=== PATIENT | female | born 1980 | race Caucasian/White ===

== ENCOUNTER 2016-06-08 14:47 | Emergency (ER) | END 2016-06-08 18:05 | disposition left against medical advice (07) | LOC: UCCORT 14:47 | DX: R35.0 Frequency of micturition (principal); Z53.21 Procedure and treatment not carried out due to patient leaving prior to being seen by health care provider ==

== ENCOUNTER 2016-06-13 10:22 | Emergency (ER) | payer OTHER ==
[2016-06-13 11:31] VITALS: BP 132/58
--- NOTE | 2016-06-13 12:16 | UC ---
Complaint Female HPI - HPI Summary HPI Summary: 35 year old female presents complaining of vaginal itchiness, thick white discharge, and vaginal dryness x 2 weeks. Patient denies STI concern or burning on urination, patient states she is not currently sexually active. Pt states, "this feels just like when I've had vaginal yeast infections in the past." - History Of Current Complaint Chief Complaint: UCGU Stated Complaint: URINARY COMPLAINT Time Seen by Provider: 06/13/16 11:35 Hx Obtained From: Patient Hx Last Menstrual Period: 9.5 yrs ?: No Onset/Duration: Gradual Onset Timing: Constant Aggravating Factor(s): Nothing Alleviating Factor(s): Nothing Associated Signs And Symptoms: Positive: Vaginal Discharge. Negative: Fever, Back Pain, Nausea, Vomiting(# Of Episodes =), Genital Swelling Related Hx: - G1, Prior STD Hx - "abnormal pap smears" - Risk Factors Ectopic Risk Factor: IUD Use Ovarian Torsion Risk Factor: Reproductive Age - Allergies/Home Medications Allergies/Adverse Reactions: Allergies Allergy/AdvReac Type Severity Reaction Status Date / Time Methylprednisolone Allergy Bleeding Verified 06/13/16 11:32 [From Depo-Medrol] Penicillins Allergy Swelling Verified 06/13/16 11:32 Of Face,Lips,& Throat bee sting Allergy Difficulty Uncoded 06/13/16 11:32 Breathing Home Medications: Home Medications Duloxetine HCl 60 mg PO DAILY 06/13/16 [History Confirmed 06/13/16] Gabapentin CAP(*) [Neurontin 300 CAP(*)] 300 mg PO BID 06/13/16 [History Confirmed 06/13/16] Ibuprofen TAB* [Motrin TAB* 800 MG] 800 mg PO TID 06/13/16 [History Confirmed ] Zolpidem TAB* [Ambien TAB*] 10 mg PO BEDTIME 06/13/16 [History Confirmed ] buPROPion TAB* [Wellbutrin TAB*] 300 mg PO DAILY 06/13/16 [History Confirmed ] traZODone TAB* [Desyrel TAB*] 1 - 2 tab PO BEDTIME 06/13/16 [History Confirmed 06/13/16] PMH/Surg Hx/FS Hx/Imm Hx Previously Healthy: Yes Endocrine History Of: Denies: Diabetes, Thyroid Disease, Hyperthyroidism, Hypothyroidism, Dyslipidemia Cardiovascular History Of: Denies: Cardiac Disorders, Hypertension, Bleeding Disorders Respiratory History Of: Reports: Asthma Denies: COPD GI/ History Of: Denies: Gastroesophageal Reflux, Ulcer, Kidney Stones Neurological History Of: Denies: TIA Psychological History Of: Denies: Anxiety, Depression - Surgical History Surgical History: Yes Surgery Procedure, Year, and Place: c5 c6 fusion withg screws, left shoulder x 2 with anchors, partial labia; right knee, abd laparoscopy; bladder stretch, endometriosis and Mirena tx - Family History Known Family History: Positive: Hypertension - Mother, Other - Hypothyroidism- Mother Breast/Ovarian CA- Mother, "middle aged" - Social History Occupation: Employed Full-time Lives: With Family Alcohol Use: None Substance Use Type: None Smoking Status (MU): Former Smoker Review of Systems Constitutional: Negative Skin: Negative Eyes: Negative ENT: Negative Respiratory: Negative Cardiovascular: Negative Gastrointestinal: Diarrhea - x 3-6 months, following up with PCP to rule out colitis Genitourinary: Other - Vaginal itching, increased thick white discharge with vaginal dryness Motor: Negative Neurovascular: Negative Musculoskeletal: Negative Neurological: Negative Psychological: Anxious, Depressed, Other - PTSD All Other Systems Reviewed And Are Negative: Yes Physical Exam Triage Information Reviewed: Yes Appearance: Well-Appearing Vital Signs: Initial Vital Signs Temp 98.5 F 06/13/16 11:21 Pulse 71 06/13/16 11:21 Resp 20 06/13/16 11:21 BP 132/58 06/13/16 11:21 Vital Signs Reviewed: Yes Eye Exam: Normal Eyes: Positive: Conjunctiva Clear ENT Exam: Normal ENT: Positive: Normal ENT inspection, Hearing grossly normal, Pharynx normal, TMs normal Dental Exam: Normal Neck exam: Normal Neck: Positive: Supple, Nontender, No Lymphadenopathy Respiratory: Positive: Chest non-tender, Lungs clear, Normal breath sounds, No respiratory distress Cardiovascular: Positive: RRR, No Murmur, Pulses Normal Abdomen Description: Positive: Soft. Negative: CVA Tenderness (R), CVA Tenderness (L), Distended, Guarding Musculoskeletal: Positive: Strength Intact, ROM Intact, No Edema Neurological Exam: Normal Neurological: Positive: Alert, Muscle Tone Normal, Fatigued Psychological Exam: Normal Skin Exam: Normal Complaint Female Dx - Course Course Of Treatment: Patient refused pelvic exam, discussed with patient benefits of having a pelvic exam and the need for further evaluation if symptoms persist after treatment. - Differential Dx/Diagnosis Provider Diagnoses: vulvovaginal candidiasis Discharge - Discharge Plan Condition: Stable Disposition: HOME Prescriptions: Fluconazole 150 MG (NF) [Diflucan 150 mg (NF)] 150 mg PO ONCE #1 tab Terconazole Vaginal [Terazol 7] 1 applic VAGINAL BEDTIME #1 kit Patient Education Materials: Vulvovaginal Candidiasis (ED) Referrals: Kole ROSE,Jazmine Arzate [Medical Doctor] - Additional Instructions: As discussed, follow-up with OBGYN and PCP if symptoms persist, follow up with PCP regarding frequency of yeast infections.
== END 2016-06-13 12:25 | disposition home or self-care (01) ==
LOC: UCCORT 10:22
DX: B37.3 Candidiasis of vulva and vagina (principal); Z87.891 Personal history of nicotine dependence; Z88.0 Allergy status to penicillin; Z88.8 Allergy status to other drugs, medicaments and biological substances
CPT/HCPCS: 81025; 87077; 87086; 87186; 99212; G0463

== ENCOUNTER 2016-09-26 14:59 | Emergency (ER) | payer BC, OTHER ==
[2016-09-26 15:53] VITALS: BP 137/73
[2016-09-26] MEDS ORDERED: Ketorolac INJ* 60 MG/2 ML VIAL IM ONE (16:26)
--- NOTE | 2016-09-26 16:31 | UC ---
Ear Complaint HPI - HPI Summary HPI Summary: 36 female with presents with left ear pain that began about 1 week ago and has worsened over the past couple of days. Patient states the pain has become excruciating. Denies any discharge or difficulty hearing from her left ear. Denies known fever/chills. Admits to having a piercing done for migraines 1 month ago that is somewhat red and swollen on the outside of her ear, but the pain is coming from the inside. Patient has had ear infections in the past. She tried taking 800mg of ibuprofen around 8am this morning without relief. Denies cough, nasal congestion, difficulty breathing and chest pain. No other complaints of symptoms. Denies PMHx. - History of Current Complaint Chief Complaint: UCEar Stated Complaint: EAR PAIN Time Seen by Provider: 09/26/16 16:10 Hx Obtained From: Patient Hx Last Menstrual Period: Has mirena ?: No Onset/Duration: Sudden Onset, Lasting Weeks - 1, Worse Since Severity Initially: Moderate Severity Currently: Severe Pain Intensity: 7 Pain Scale Used: 0-10 Numeric Aggravating Factors: Nothing Alleviating Factors: Nothing Associated Signs/Symptoms: Positive: Swelling @ - daith ear peircing, externally however has been that way for past month. Negative: Discharge, Foreign Body Sensation, Trauma to Ear - Allergies/Home Medications Allergies/Adverse Reactions: Allergies Allergy/AdvReac Type Severity Reaction Status Date / Time Methylprednisolone Allergy Bleeding Verified 09/26/16 15:53 [From Depo-Medrol] Penicillins Allergy Swelling Verified 09/26/16 15:53 Of Face,Lips,& Throat bee sting Allergy Difficulty Uncoded 09/26/16 15:53 Breathing PMH/Surg Hx/FS Hx/Imm Hx - Additional Past Medical History Additional PMH: Denies PMHx. No diabetes, htn or asthma Previously Healthy: Yes - Surgical History Surgical History: Yes Surgery Procedure, Year, and Place: c5 c6 fusion withg screws, left shoulder x 2 with anchors, partial labia; right knee, abd laparoscopy; bladder stretch, endometriosis and Mirena tx - Family History Known Family History: Positive: Hypertension - Mother, Other - Hypothyroidism- Mother Breast/Ovarian CA- Mother, "middle aged" - Social History Alcohol Use: None Substance Use Type: None Smoking Status (MU): Light Every Day Tobacco Smoker Amount Used/How Often: 1/2 ppd Length of Time of Smoking/Using Tobacco: age 16 Have You Smoked in the Last Year: Yes - Immunization History Most Recent Influenza Vaccination: never Most Recent Tetanus Shot: 2016 Vaccination Up to Date: Yes Review of Systems Constitutional: Negative ENT: Ear Ache Respiratory: Negative Cardiovascular: Negative Gastrointestinal: Negative Musculoskeletal: Negative Neurological: Negative All Other Systems Reviewed And Are Negative: Yes Physical Exam Triage Information Reviewed: Yes Appearance: Well-Appearing, No Pain Distress, Well-Nourished Vital Signs: Initial Vital Signs Temp 99.0 F 09/26/16 15:39 Pulse 84 09/26/16 15:39 Resp 16 09/26/16 15:39 BP 137/73 09/26/16 15:39 Pulse Ox 98 09/26/16 15:39 low grade fever noted with ibuprofen in system. slightly elevated BP noted, recommended follow up with PCP within 2 weeks. Vital Signs Reviewed: Yes Eyes: Positive: Conjunctiva Clear ENT: Positive: Hearing grossly normal, Pharynx normal, TMs normal - right ear, TM bulging, TM dull, TM red - left ear. Negative: Pharyngeal erythema, Nasal congestion, Nasal drainage, Tonsillar swelling, Tonsillar exudate Dental: Negative: Cervical Lymphadenopathy Neck: Positive: Supple, Nontender, No Lymphadenopathy Respiratory: Positive: Chest non-tender, Lungs clear, Normal breath sounds, No respiratory distress, No accessory muscle use Cardiovascular: Positive: RRR, No Murmur, Pulses Normal Abdomen Description: Positive: Nontender Bowel Sounds: Positive: Present Musculoskeletal: Positive: Strength Intact, ROM Intact Neurological: Positive: Alert Skin Exam: Normal Ear Complaint Course/Dx - Course Course Of Treatment: will be treated for OM of left ear. instructed to clean ear peircing with soap and water, along with triple antibiotic. do not use q- tips inside of ear canal. do not submerge water. naproxen for pain and fever starting tomorrow due to given toradol for pain and inflammation while in office. Follow up with PCP adn to re-check BP. Aware of worsening signs and symptoms to watch out for. - Differential Dx/Diagnosis Differential Diagnosis/HQI/PQRI: Cellulitis, Cerumen Impaction, Otitis Externa, Otitis Media, Perforated TM, Pharyngitis, URI, Other Provider Diagnoses: otitis media, left Discharge - Discharge Plan Condition: Stable Disposition: HOME Prescriptions: Cefdinir [Cefdinir 300 MG CAP] 300 mg PO BID #20 cap Patient Education Materials: Otitis Media (ED) Referrals: Kole ROSE,Jazmine Arzate [Primary Care Provider] - Additional Instructions: Take prescribed antibiotic as directed, until entire dose is finished even if symptoms persist. If you have an allergic reaction such as difficulty breathing, throat swelling or hives, fever/chills please go to ER and stop taking medications. Take Aleve for pain starting tomorrow. Drink plenty of fluids and get plenty of rest. Do not use qtips and do not submerge head/ears under water. Apply triple antibiotic ointment and soap/water to ear piercing. Follow up with primary care doctor.
== END 2016-09-26 17:08 | disposition home or self-care (01) ==
LOC: UCCORT 14:59
DX: H66.92 Otitis media, unspecified, left ear (principal); Z72.0 Tobacco use
CPT/HCPCS: 96372; 99212; G0463; J1885

== ENCOUNTER 2016-12-07 16:09 | Emergency (ER) | payer BC ==
[2016-12-07 16:25] VITALS: BP 115/70
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
[2016-12-07] MEDS ORDERED: Ketorolac INJ* 60 MG/2 ML VIAL IM ONE (16:43)
== END 2016-12-07 17:19 | disposition home or self-care (01) ==
LOC: UCCORT 16:09
DX: M54.5 Low back pain (principal); M54.16 Radiculopathy, lumbar region; J45.909 Unspecified asthma, uncomplicated; F41.9 Anxiety disorder, unspecified; Z88.0 Allergy status to penicillin; Z88.5 Allergy status to narcotic agent; Z91.030 Bee allergy status; F17.210 Nicotine dependence, cigarettes, uncomplicated
CPT/HCPCS: 96372; 99212; G0463; J1885

== ENCOUNTER 2017-05-14 08:59 | Emergency (ER) | payer BC, OTHER ==
[2017-05-14 09:22] VITALS: BP 136/54
--- NOTE | 2017-05-14 09:25 | ED ---
Neck Pain - HPI Summary HPI Summary: 36 yr old with prior plate in neck and chronic numbness in the finger tips presents here with pain in neck after jarring her neck this morning. She states she slipped down 4 steps on her feet and caught herself with her arms at the bottom. She did not fall and hit buttock, pelvis, back, head or neck. She had a jarring motion. She states she has chronic numbness in finger tips; she states she sees [facility] Doctor Goldstein for her neck and in the near future is to get an MRI. She has no other complaints or injuries. - History of Current Complaint Stated Complaint: S/P FALL NECK INJURY Time Seen by Provider: 05/14/17 09:03 Hx Last Menstrual Period: IUD - Allergies/Home Medications Allergies/Adverse Reactions: Allergies Allergy/AdvReac Type Severity Reaction Status Date / Time Methylprednisolone Allergy Bleeding Verified 05/14/17 09:22 [From Depo-Medrol] Penicillins Allergy Swelling Verified 05/14/17 09:22 Of Face,Lips,& Throat bee sting Allergy Difficulty Uncoded 05/14/17 09:22 Breathing Home Medications: Home Medications Meloxicam [Mobic] 15 mg PO 05/14/17 [History] Mirabegron (NF) [Myrbetriq (NF)] 50 mg PO DAILY 05/14/17 [History Confirmed ] Prazosin CAP* [Minipress CAP*] 1 mg PO DAILY 05/14/17 [History Confirmed ] Tizanidine HCl 4 mg PO 05/14/17 [History] PMH/Surg Hx/FS Hx/Imm Hx Endocrine/Hematology History: Denies: Hx Diabetes, Hx Thyroid Disease Cardiovascular History: Denies: Hx Hypertension Respiratory History: Reports: Hx Asthma Denies: Hx Chronic Obstructive Pulmonary Disease (COPD) GI History: Denies: Hx Ulcer History: Denies: Hx Kidney Stones Neurological History: Denies: Hx Transient Ischemic Attacks (TIA) Psychiatric History: Denies: Hx Anxiety, Hx Depression - Surgical History Surgery Procedure, Year, and Place: c5 c6 fusion withg screws, left shoulder x 2 with anchors, partial labia; right knee, abd laparoscopy; bladder stretch, endometriosis and Mirena tx Infectious Disease History: Denies: Traveled Outside the [place] in Last 30 Days - Family History Known Family History: Positive: Hypertension - Mother, Other - Hypothyroidism- Mother Breast/Ovarian CA- Mother, "middle aged" Negative: Cardiac Disease, Diabetes - Social History Alcohol Use: None Substance Use Type: Reports: None Smoking Status (MU): Light Every Day Tobacco Smoker Amount Used/How Often: 1/2 ppd Length of Time of Smoking/Using Tobacco: age 16 Have You Smoked in the Last Year: Yes Review of Systems Positive: Other - neck pain Positive: Weakness - chronic in the left arm due to prior shoulder surgeries. , Numbness - chronic in her finger tips All Other Systems Reviewed And Are Negative: Yes Physical Exam Triage Information Reviewed: Yes Vital Signs Reviewed: Yes Appearance: Positive: Well-Appearing, No Pain Distress Skin: Positive: Warm, Skin Color Reflects Adequate Perfusion Head/Face: Positive: Normal Head/Face Inspection Eyes: Positive: EOMI ENT: Positive: Normal ENT inspection Neck: Positive: Tenderness @ - mild midline upper neck tenderness Respiratory/Lung Sounds: Positive: Clear to Auscultation, Breath Sounds Present Cardiovascular: Positive: RRR. Negative: Murmur Neurological: Positive: Alert, Oriented to Person Place, Time, CN Intact II- III. Negative: Sensory/Motor Intact - chronic numbness in the 2,3,4 finger tips bilateral, and also weakness left shoulder from prior surgeries. Psychiatric: Positive: Normal Diagnostics - Laboratory Lab Statement: Any lab studies that have been ordered have been reviewed, and results considered in the medical decision making process. - Radiology cervical spine Xray Interpretation: No Acute Changes Radiology Interpretation Completed By: Radiologist Neck Course/Dx - Course Course Of Treatment: 36 yr old with cervical strain. Plain films negative. She will follow up with Dr Goldstein. - Diagnoses Provider Diagnoses: Cervical strain Discharge - Discharge Plan Condition: Good Disposition: HOME Patient Education Materials: Cervical Strain (ED) Referrals: Adam Goldstein MD [Primary Care Provider] - 1 Day Additional Instructions: Call Dr Goldstein as soon as possible to be seen. If you experience any new numbness, weakness or increased pain, go to the [facility] ER where your doctor is on staff.
--- NOTE | 2017-05-14 09:46 | RAD ---
HISTORY: Neck pain COMPARISONS: None VIEWS: 5, Frontal, lateral, open-mouth odontoid, and bilateral oblique views of the cervical spine. FINDINGS: The cervical spine is visualized from the skull base through T1. ALIGNMENT: There is straightening of the normal cervical lordosis. VERTEBRAL BODIES: The odontoid process is intact. The atlantoaxial intervals are symmetric. The patient is status post anterior cervical fusion with a fusion plate and screws at C5 and C6. There is no appreciable hardware failure or osteolysis. JOINTS: There is no subluxation or dislocation. The facet joints are unremarkable. There is no osseous neural foraminal narrowing on the oblique views. INTERVERTEBRAL DISCS: The patient is status post fusion across C5-C6. SOFT TISSUE: The prevertebral soft tissues are normal. OTHER: The skull base is normal. The lung apices are clear. IMPRESSION: 1. STATUS POST ANTERIOR CERVICAL FUSION. 2. STRAIGHTENING OF THE CERVICAL LORDOSIS.
== END 2017-05-14 10:03 | disposition home or self-care (01) ==
LOC: UCCORT 08:59
DX: S16.1XXA Strain of muscle, fascia and tendon at neck level, initial encounter (principal); W18.40XA Slipping, tripping and stumbling without falling, unspecified, initial encounter; Y93.9 Activity, unspecified; Y92.9 Unspecified place or not applicable; J45.909 Unspecified asthma, uncomplicated; Z88.0 Allergy status to penicillin; Z88.8 Allergy status to other drugs, medicaments and biological substances; F17.210 Nicotine dependence, cigarettes, uncomplicated
CPT/HCPCS: 72050; 99211; G0463

== ENCOUNTER 2018-01-22 15:58 | Emergency (ER) | payer OTHER ==
--- OUTSIDE RECORDS SUMMARY | 2018-01-22 16:34 | XMS REPORT | Continuity of Care Document ---
:1980 External Reference #:[id number] Author Name Sydney Rahman M.D. Address [address] [place] [address] [address] [place] [address] Care Team Providers Name Role Phone Jazmine Sharif M.D. Care Team Information Temperature Logging Operator Unavailable Jazmine Sharif M.D. Primary Care Physician Unavailable Payers Type Date Identification Numbers Payment Provider Subscriber Policy Number: [id number] [facility] Claims Ana Major PayID: [id number] [address] [place] [address] Policy Number: [id number] Medicaid Ana Major PayID: [id number] [address] [place] [address] Advance Directives Description No Information Available Problems Description No Information Family History Date Family Member(s) Problem(s) Comments General Ovarian Cancer M - 36 ? General Colon Cancer PGM General See Scanned Chart Social History Type Date Description Comments Sex Unknown Marital Status Engaged Tobacco Use Start: Unknown Light tobacco smoker (10 or fewer cigarettes/day) Allergies, Adverse Reactions, Alerts Date Description Reaction Status Severity Comments 09/26/2011 Penicillin Contact dermatitis Active 11/09/2014 Depo-Medrol Active hives 07/12/2010 NKDA Inactive Medications Medication Date Status Form Strength Qnty SIG Indications Ordering Provider Mirena 12/20 Active IUD 20mcg/24H Sydney /Kareem Rahman M.D. Albuterol Sulfate Active Nebulizer (2.5mg/3M Kole, /0000 L) 0.083% Cheyenne Lucero Cyclobenzaprine Active Tablets 5mg Kole, HCL /0000 Cheyenne Lucero Topiramate Active Tablets 25mg Unknown /0000 Trospium Chloride 00 Active Tablets 20mg Unknown /0000 Morphine Sulfate Active Tablets ER 15mg Unknown ER /0000 Ventolin HFA Active Aerosol 108(90Bas Unknown /0000 e) mcg/Act Sumatriptan Active Tablets 50mg Unknown Succinate Prazosin HCL Active Capsules 2mg Unknown / Sertraline HCL Active Tablets 50mg Unknown /0000 Trazodone HCL Active Tablets 100mg Unknown / Montelukast Active Tablets 10mg Unknown Sodium /0000 Diflucan 12/01 Hx Tablets 150mg 3tabs 1 by mouth every day x Lacey, - 3 days M.D. 11/29 Terazol 7 11/24 Hx Cream 0.4% 1cour [address] of Lacey, - vagina M.D. 01/20 every bedtime x7 nights Flagyl 10/03 Hx Tablets 500mg 14tab 1 po bid x s 7 days Lacey, - M.D. 10/02 Diflucan 10/03 Hx Tablets 150mg 2tabs 1 po day 2 and 5 of Lacey, - antibiotic M.D. 10/02 Lotrisone 03/09 Hx Cream 1-0.05% 1tube apply to affected Lacey, - area t.i.d. M.D. 09/25 Angeliq 12/20 Hx Tablets 0.5-1mg 1Mont 1 po qd Mcmanus Lacey, - M.D. 09/25 Lupron Depot 12/20 Hx Kit 3.75mg 1unit to be admin s im q 4 Lacey, - weeks M.D. 09/25 Flagyl 03/24 Hx Tablets 500mg 14tab 1 po bid x s 7 days Margabrielaale, - M.D. 09/25 Diflucan 03/24 Hx Tablets 150mg 2tabs 1 po now, August repeat Lacey, - in 48 hrs M.D. 09/25 Macrobid 11/16 Hx Capsules 100mg 6caps 1 po bid x 3 Lacey, - M.D. 09/25 Xanax / Hx Tablets 0.25mg 60tab 1 po tid Unknown /0000 s prn anxiety - 10/02 Citalopram 00 Hx Tablets 10mg 30tab 1 po qd Unknown Hydrobromide /0000 s - 10/[address] 500mg Unknown /0000 - 10/02 Lexapro / Hx Tablets 10mg 30tab 1 po qd Unknown /0000 s - 11/09 Mirtazapine Hx Tablets 7.5mg Unknown /0000 - 11/09 Benzonatate Hx Capsules 100mg Unknown /0000 - 01/20 Hydrocodone Hx Solution 7.5-325mg Unknown Bitartrate/Acetam /ML inophen - 01/20 Azithromycin Hx Tablets 500mg Kole, /0000 Jazmine - M.DLubna 11/09 Elmiron Hx Capsules 100mg Jan, /0000 CHELSEA Villanueva - 11/23 Escitalopram Hx Tablets 20mg Kole, Oxalate /0000 Jazmine - M.DLubna 11/23 Ibuprofen Hx Tablets 800mg Kole, /0000 Jazmine - M.DLubna 01/08 Nicotine Hx Patches 14mg/24HR Kole, /0000 24HR Jazmine - M.Mendoza 11/09 Nicotine Hx Patches 21mg/24HR Kole, /0000 24HR Jazmine - M.DLubna 01/20 Nicotine Hx Patches 7mg/24HR Kole, /0000 24HR Jazmine - M.Mendoza 11/09 Prednisone Hx Tablets 10mg Kole, /0000 Jazmine - M.DLubna 11/09 Proair HFA Hx Aerosol 108(90Bas Kole, /0000 e) Jazmine - mcg/Act M.DLubna 01/01 Divalproex Sodium Hx Tablets ER 250mg Kole, ER /0000 24HR Ottoniel Lucero M.D. 01/20 Cefuroxime Axetil Hx Tablets 500mg Kole, /0000 Jazmine - M.DLubna 11/09 Oxycodone HCL 00/00 Hx Tablets 5mg Unknown /0000 - 11/23 Meloxicam 00/00 Hx Tablets 15mg Unknown /0000 - 11/09 Amitriptyline HCL 00/00 Hx Tablets 10mg Conchis Eckertel /0000 Cheyenne Cruz - 11/23 Nitrofurantoin 00/00 Hx Capsules 100mg Bigg Eckert Monohyd Macro /0000 SCheyenne Calvo - 11/09 Oxybutynin 00/00 Hx Tablets ER 10mg Kole, Chloride ER /0000 24HR Jazmine - Ugo.Mendoza 11/09 Azithromycin /00 Hx Tablets 250mg Kole, /0000 Jazmine - M.DLubna 11/09 Levofloxacin / Hx Tablets 500mg Unknown /0000 - 01/20 Advair Diskus / Hx Aerosol 100-50mcg Unknown /0000 /Dose - 11/29 Prednisone 00/00 Hx Tablets 10mg Kole, /0000 Jazmine - M.DLubna 01/20 Azithromycin 00/00 Hx Tablets 500mg Kole, /0000 Jazmine - M.DLubna 01/20 Cefuroxime Axetil Hx Tablets 500mg Kole, /0000 Jazmine - M.DLubna 01/20 Meloxicam 00/00 Hx Tablets 15mg Unknown /0000 - 01/20 Nitrofurantoin 00/00 Hx Capsules 100mg Bigg Ekcerthyd Macro /0000 Cheyenne Cruz - 01/20 Oxybutynin 00/00 Hx Tablets ER 10mg Kole, Chloride ER /0000 24HR Jazmine - MSandra 01/20 Azithromycin /00 Hx Tablets 250mg Kole, /0000 Jazmine - M.DLubna 01/20 Bupropion HCL 00/00 Hx Tablets 100mg Take One Unknown /0000 Tablet By - Mouth Every 01/01 Fluoxetine HCL 00/00 Hx Capsules 20mg Take One Unknown /0000 Capsule By - Mouth Every 01/01 With 40MG For A Total Of 60MG Gabapentin Hx Capsules 300mg Take One Unknown /0000 Capsule By - Mouth Four 01/08 Times A Day /2018 as Needed Zolpidem Tartrate 00 Hx Tablets 10mg Take One Unknown /0000 Tablet By - Mouth AT 01/08 Maximum Daily Dose=1 Medications Administered in Office Medication Date Status Form Strength Qnty SIG Indications Ordering Provider Kingsley Administered Injection Sydney Injection [facility] 009 [place] [id number] Cheyenne Immunizations Description No Information Available Vital Signs Date Vital Result Comment 01/09/2018 3:34pm BP Systolic 124 mmHg BP Diastolic 84 mmHg Height 63 inches 5'3" Weight 186.00 lb BMI (Body Mass Index) 32.9 kg/m2 01/02/2017 3:52pm BP Systolic 118 mmHg BP Diastolic 80 mmHg Height 63 inches 5'3" Weight 183.00 lb BMI (Body Mass Index) 32.4 kg/m2 11/30/2016 4:04pm BP Systolic 122 mmHg BP Diastolic 82 mmHg Height 63 inches 5'3" Weight 182.00 lb BMI (Body Mass Index) 32.2 kg/m2 11/24/2015 4:10pm BP Systolic 122 mmHg BP Diastolic 84 mmHg Height 63 inches 5'3" Weight 184.38 lb BMI (Body Mass Index) 32.7 kg/m2 01/20/2015 2:43pm BP Systolic 122 mmHg BP Diastolic 84 mmHg Height 63 inches 5'3" Weight 178.38 lb BMI (Body Mass Index) 31.6 kg/m2 11/09/2014 9:17am BP Systolic 118 mmHg BP Diastolic 80 mmHg Height 63 inches 5'3" Weight 173.38 lb BMI (Body Mass Index) 30.7 kg/m2 11/10/2013 11:16am BP Systolic 118 mmHg BP Diastolic 68 mmHg Height 63 inches 5'3" Weight 180.00 lb BMI (Body Mass Index) 31.9 kg/m2 10/29/2013 9:22am BP Systolic 124 mmHg BP Diastolic 82 mmHg Height 63 inches 5'3" Weight 179.25 lb BMI (Body Mass Index) 31.7 kg/m2 10/02/2012 2:05pm BP Systolic 118 mmHg BP Diastolic 76 mmHg Height 63 inches 5'3" Weight 178.00 lb BMI (Body Mass Index) 31.5 kg/m2 09/26/2011 11:55am BP Systolic 122 mmHg BP Diastolic 80 mmHg Height 63 inches 5'3" Weight 173.00 lb BMI (Body Mass Index) 30.6 kg/m2 12/20/2009 11:16am Height 63 inches 5'3" Weight 195.00 lb BMI (Body Mass Index) 34.5 kg/m2 Results Test Date Facility Test Result H/L Range Note Laboratory test 01/09/2018 [facility] Thinprep W/High <pending> finding Risk HPV Laboratory test 01/02/2017 [facility] TP HighRisk HPV Normal 1 finding High-Risk HPV 01/02/2017 [facility] HPV Abnormal 2 TP HighRisk HPV SEE IMAGE Ua And Culture 01/02/2017 [facility] Urine Culture SPECIMEN DESCRI> [address] [place] [address] [phone] Urinalysis 01/02/2017 [facility] Color YELLOW [address] [place] [address], [place] [address] [phone] Appearance CLEAR Spec Grav Urine 1.020 (1.003-1.030) PH Urine 5.0 (5.0-7.5) Leuk Esterase NEGATIVE (Neg) Nitrite Urine NEGATIVE (Neg) Protein Urine NEGATIVE (Neg) Glucose Urine NEGATIVE (Neg) Ketone Urine NEGATIVE (Neg) Urobilinogen 0.2 mg/dL (0-1.0) Bilirubin Urine NEGATIVE (Neg) Blood/HGB Urine NEGATIVE (Neg) Ua And Culture 11/30/2016 [facility] Urine Culture <pending> Justino [address] [place] [address] [phone] Ua And Culture 11/24/2015 [facility] Urine Culture SPECIMEN DESCRI> [address] [place] [address] [phone] Urinalysis 11/24/2015 [facility] Color YELLOW [address] [place] [address], [place] [address] [phone] Appearance CLEAR Spec Grav Urine 1.020 (1.003-1.030) PH Urine 5.5 (5.0-7.5) Leuk Esterase NEGATIVE (Neg) Nitrite Urine NEGATIVE (Neg) Protein Urine NEGATIVE (Neg) Glucose Urine NEGATIVE (Neg) Ketone Urine NEGATIVE (Neg) Urobilinogen 0.2 mg/dL (0-1.0) Bilirubin Urine NEGATIVE (Neg) Blood/HGB Urine NEGATIVE (Neg) Laboratory test 11/24/2015 [facility] Vaginitis Direct SPECIMEN [address] [place] [address] Test DESCRI> [place] [address] [phone] Vag/Cerv Culture SPECIMEN DESCRIP <SEE NOTE> 6 Laboratory test 11/24/2015 [facility] (DO Not Use) Cytology Pap See Note 7 finding Laboratory test 01/20/2015 [facility] Vaginitis Direct SPECIMEN DESCRI> 8 [address] Test [place], [place] [address] [phone] Vag/Cerv Culture SPECIMEN DESCRI> 9 Urinalysis 01/20/2015 [facility] Color YELLOW [address] [facility] [place] [address] [phone] Appearance CLEAR Spec Grav Urine 1.019 (1.003-1.030) PH Urine 7.5 (5.0-7.5) Leuk Esterase NEGATIVE (Neg) Nitrite Urine NEGATIVE (Neg) Protein Urine NEGATIVE (Neg) Glucose Urine NEGATIVE (Neg) Ketone Urine NEGATIVE (Neg) Urobilinogen 0.2 mg/dL (0-1.0) Bilirubin Urine NEGATIVE (Neg) Blood/HGB Urine NEGATIVE (Neg) Ua And Culture 01/20/2015 [facility] Urine Culture SPECIMEN 10 [facility] DESCRI> [place] [address] [phone] Pap+GC/CT 11/09/2014 [facility] (DO Not Use) [facility] CT- GC- 11 Laboratory test 11/09/2014 [facility] Vaginitis Direct SPECIMEN 12 finding [address] [facility] Test [place]CRI> [place] [address] [phone] Vag/Cerv Culture SPECIMEN DESCRI> 13 Laboratory test 11/10/2013 [facility] Urine Culture SPECIMEN 14 finding [address] [place]CRI> [place] [address] [phone] Laboratory test 10/29/2013 [facility] (DO Not Use) Cytology Pap See Note 15 finding Ua And Culture 10/29/2013 [facility] Urine Culture SPECIMEN [address] [place]CR[place]> [place] [address] [phone] Urinalysis 10/29/2013 [facility] Color EVIN [address] [facility] [address] [phone] Appearance CLOUDY Spec Grav Urine 1.022 (1.003-1.030) PH Urine 5.5 (5.0-7.5) Leuk Esterase TRACE (Neg) Nitrite Urine NEGATIVE (Neg) Protein Urine NEGATIVE (Neg) Glucose Urine NEGATIVE (Neg) Ketone Urine 1+ (Neg) Urobilinogen 1.0 mg/dL (0-1.0) Bilirubin Urine 2+ (Neg) 17 Blood/HGB Urine 1+ (Neg) Urine Micro Only 10/29/2013 [facility] Urine WBC 0-2 [HPF] (0-5) [address] [place] [address] [phone] Urine RBC * 6-10 [HPF] (0-2) Epithelial Cells 1+ [HPF] Bacteria 1+ [HPF] Mucus 2+ [HPF] Laboratory test 10/02/2012 [facility] Pap LABORATORY [address] [place] [address] ALLIA <[place] [address] NOTE> [phone] CT/GC Amplified 10/02/2012 [facility] C. Trachomatis NEGATIVE (Neg) [address] [place] [address] [phone] N. Gonorrhoeae NEGATIVE (Neg) 20 Laboratory test 10/02/2012 [facility] Vag/Cerv SPECIMEN [address] [place] [address] Culture DESCRIP <[place] [address] NOTE> [phone] Ua And Culture 09/26/2011 [facility] Urine Culture SPECIMEN [address] [place] [address] DESCRIP <[place] [address] NOTE> [phone] Urinalysis 09/26/2011 [facility] Color EVIN [address] [place] [address] [phone] Appearance CLEAR Spec Grav Urine 1.028 (1.003-1.030) PH Urine 6.0 (5.0-7.5) Leuk Esterase NEGATIVE (Neg) Nitrite Urine NEGATIVE (Neg) Protein Urine NEGATIVE (Neg) Glucose Urine NEGATIVE (Neg) Ketone Urine NEGATIVE (Neg) Urobilinogen 1.0 mg/dL (0-1.0) Bilirubin Urine NEGATIVE (Neg) Blood/HGB Urine NEGATIVE (Neg) Laboratory test 09/26/2011 [facility] Pap LABORATORY [place] [address] [place] [address] <SEE NOTE> [place] [address] [phone] Vaginitis Direct Test SPECIMEN DESCRIP <SEE NOTE> 24 CT/GC Amplified 09/26/2011 [facility] C. Trachomatis NEGATIVE (Neg) [address] [place] [address] [phone] N. Gonorrhoeae NEGATIVE (Neg) 26 Laboratory test 09/26/2011 [facility] Vag/Cerv SPECIMEN [address] Culture DESCRIP <SEE [place] [address] NOTE> [phone] Laboratory test 07/21/2010 [facility] HCG,Quant Preg <1 MIU/ML 28 finding [address] [facility] [place] [place] [address] [phone] Progesterone @ 2.79 NG/ML 29 Type And Screen SPEC EXP DATE <SEE NOTE> 30 Laboratory test 07/21/2010 [facility] Pap LABORATORY [place] [address] <SEE NOTE> [place] [address] [phone] Laboratory test 03/09/2010 [facility] [address] Pathology <SEE NOTE> [place] [address] Specimen [phone] Vaginitis Direct Test SPECIMEN DESCRIP <SEE NOTE> 33 Misc Genital Culture SPECIMEN DESCRIP <SEE NOTE> 34 HSV PCR W/Typing 03/09/2010 [facility] HSV PCR Source CERVICAL [address] [place] [address] [place] 5805383 [phone] HSV PCR W/Typing POLYMERASE <SEE NOTE> 35 HSV Performing Lab [facility] <SEE NOTE> 36 Laboratory test 01/24/2010 [facility] [address] Pathology <SEE NOTE> [place] [address] Specimen [phone] Laboratory test 12/20/2009 [facility] Pap LABORATORY [place] [address] <SEE NOTE> [place] [address] [phone] Vaginitis Direct Test SPECIMEN DESCRIP <SEE NOTE> 39 CT/GC Amplified 12/20/2009 [facility] C. Trachomatis NEGATIVE (Neg) [address] [place] [address] [place] [address] [phone] N. Gonorrhoeae NEGATIVE (Neg) 41 Urinalysis 12/20/2009 [facility] Color YELLOW Harish [place] [address] [phone] Appearance CLEAR Spec Grav Urine 1.006 (1.003-1.030) PH Urine 7.0 (5.0-7.5) Leuk Esterase NEGATIVE (Neg) Nitrite Urine NEGATIVE (Neg) Protein Urine NEGATIVE (Neg) Glucose Urine NEGATIVE (Neg) Ketone Urine NEGATIVE (Neg) Urobilinogen 0.2 mg/dL (0-1.0) Bilirubin Urine NEGATIVE (Neg) Blood/HGB Urine NEGATIVE (Neg) Ua And Culture 12/20/2009 [facility] Urine Culture SPECIMEN 42 (Lacny) [address] DESCRIP <[place] [address] NOTE> [phone] Laboratory test 12/20/2009 [facility] Misc Genital SPECIMEN 43 finding [address] Culture DESCRIP <[place] [address] NOTE> [phone] Laboratory test 03/15/2009 [facility] Vaginitis SPECIMEN 44 finding [address] Direct Test DESCRIP <[place] [address] NOTE> [phone] Urine Microscopic 11/11/2008 [facility] Urine WBC 3-5 /HPF (0-5) [address] [place] [address] [phone] Urine RBC * 3-5 /HPF (0-2) Epithelial Cells 1+ /HPF Bacteria 1+ /HPF Urinalysis 11/11/2008 [facility] Color YELLOW 45 [address] [place] [address] [phone] Appearance CLEAR Spec Grav Urine 1.020 (1.003-1.030) PH Urine 5.5 (5.0-7.5) Leuk Esterase TRACE (Neg) Nitrite Urine NEGATIVE (Neg) Protein Urine NEGATIVE (Neg) Glucose Urine NEGATIVE (Neg) Ketone Urine NEGATIVE (Neg) Urobilinogen 0.2 mg/dL (0-1.0) Bilirubin Urine NEGATIVE (Neg) Blood/HGB Urine TRACE (Neg) Ua And Culture 11/11/2008 [facility] Urine Culture SPECIMEN 46 (Lacny) [address] DESCRIP <[place] [address] NOTE> [phone] Laboratory test 10/15/2008 [facility] HCG, Qual. NEGATIVE (Neg) finding [address] [facility] [place] [address] [phone] CBC Without Diff 10/15/2008 [facility] WBC 11.7 K/UL High (4.1- [address] 11.0) [place] [address] [phone] RBC 4.87 M/UL (4.00-5.40) HGB 15.4 GM/DL (12.0-16.0) HCT 45.2 % (36.0-47.0) MCV 92.9 FL (80.0-95.0) MCH 31.5 pg (27.0-32.0) MCHC 34.0 g/dL (32.0-36.0) RDW 13.3 % (10.5-14.5) PLT 379 K/UL (150-400) MPV 7.5 FL (7.1-10.7) Laboratory test 09/03/2008 [facility] Urine Culture SPECIMEN DESCRIP [address] [place] [address] <SEE NOTE> [place] [address] [phone] Laboratory test 09/03/2008 [facility] Pap LABORATORY [place] [address] [place] [address] ROAD <SEE NOTE> [place] [address] [phone] Urinalysis 09/03/2008 [facility] Color YELLOW [address] [place] [address] [phone] Appearance CLEAR Spec Grav Urine 1.019 (1.003-1.030) PH Urine 8.0 High (5.0-7.5) Leuk Esterase NEGATIVE (Neg) Nitrite Urine NEGATIVE (Neg) Protein Urine NEGATIVE (Neg) Glucose Urine NEGATIVE (Neg) Ketone Urine NEGATIVE (Neg) Urobilinogen 0.2 mg/dL (0-1.0) Bilirubin Urine NEGATIVE (Neg) Blood/HGB Urine NEGATIVE (Neg) 1 SPECIMEN PART A. Cervical, Endocervical, ThinPrep Pap (In Shop Service Technician) CYTOLOGY HX Date of Last Menstrual Period: N Other Information: Routine Exam Previous Normal Pap: 2016 FINAL DIAGNOSIS INTERPRETATION: Negative for Intraepithelial Lesion or Malignancy. SPECIMEN ADEQUACY:Satisfactory for evaluation. Endocervical/transformation zone component present. 2 HR-HPV: Positive Test performed by the FDA-approved [employer] (Gen-Probe) APTIMA HPV test, which detects HPV genotypes: 16, 18, 31, 33, 35, 39, 45, 51, 52, 56, 58, 59, 66, and 68. 3 SPECIMEN DESCRIPTION BLADDER URINE CULTURE RESULTS NO GROWTH REPORT STATUS FINAL 01/03/2017 4 SPECIMEN DESCRIPTION BLADDER URINE CULTURE RESULTS MIXED UROGENITAL BEATRICE; PLEASE SUBMIT A NEW SPEC IMEN IF CLINICALLY INDICATED. REPORT STATUS FINAL 11/26/2015 5 SPECIMEN DESCRIPTION VAGINAL SPECIMEN RESULT NEGATIVE FOR TRICHOMONAS VAGINALIS NEGATIVE FOR GARDNERELLA VAGINALIS POSITIVE FOR TEODORO SPECIES REPORT STATUS FINAL 11/24/2015 6 SPECIMEN DESCRIPTION VAGINAL SPECIMEN GROUP B STREP CULT. NEGATIVE: BETA HEMOLYTIC STREPTOCOCCI GROUP B B Y PCR CULTURE RESULTS NORMAL VAGINAL BEATRICE NO NEISSERIA GONORRHOEAE ISOLATED REPORT STATUS FINAL 11/26/2015 7 Interpretation: NEGATIVE FOR INTRAEPITHELIAL LESION OR MALIGNANCY. FUNGAL ORGANISMS MORPHOLOGICALLY CONSISTENT WITH TEODORO SP. Specimen Adequacy: SATISFACTORY FOR EVALUATION. Additional Findings: ENDOCERVICAL/TRANSFORMATION ZONE PRESENT. This liquid-based ThinPrep Pap Test was screened with the use of the ThinPrep Imaging System and was reported using Morganza System descriptive nomenclature. Cytology Laboratory [address] [place] [address], [address] [place] [address] CYTOLOGY REPORT Name: Ana Major : 1980 (Age: 35) Sex: F Location: [facility] Med. Rec. # [id number] Date Collected: 11/24/2015 Billing #: [id number] Date Received: 11/25/2015 Physician(s): SYDNEY RAHMAN MD Source of Specimen: ENDOCERVICAL/ECTOCERVICAL THIN PREP Clinical Information: Date of Last Menstrual Period: None Provided jordan Electronic Signature GALLO Orozco (ASCP) Reported: 11/30/2015 [facility] Dx Code(s): Z01.419 A; B37.3 8 SPECIMEN DESCRIPTION VAGINAL SPECIMEN RESULT NEGATIVE FOR TRICHOMONAS VAGINALIS NEGATIVE FOR GARDNERELLA VAGINALIS NEGATIVE FOR TEODORO SPECIES REPORT STATUS FINAL 01/20/2015 9 SPECIMEN DESCRIPTION VAGINAL SPECIMEN GROUP B STREP CULT. NEGATIVE: BETA HEMOLYTIC STREPTOCOCCI GROUP B B Y PCR CULTURE RESULTS NORMAL VAGINAL BEATRICE NO NEISSERIA GONORRHOEAE ISOLATED REPORT STATUS FINAL 01/22/2015 10 SPECIMEN DESCRIPTION BLADDER URINE CULTURE RESULTS NO GROWTH REPORT STATUS FINAL 01/21/2015 11 Interpretation: NEGATIVE FOR INTRAEPITHELIAL LESION OR MALIGNANCY. REACTIVE CELLULAR CHANGES ASSOCIATED WITH INFLAMMATION. FUNGAL ORGANISMS MORPHOLOGICALLY CONSISTENT WITH TEODORO SP. Specimen Adequacy: SATISFACTORY FOR EVALUATION. Additional Findings: ENDOCERVICAL/TRANSFORMATION ZONE PRESENT. Cytology Laboratory [address] [facility], [address] [place] [address] CYTOLOGY REPORT Name: Ana Major : 1980 (Age: 34) Sex: F Location: [facility] Med. Rec. # [id number] Date Collected: 11/09/2014 Billing #: [id number] Date Received: 11/09/2014 Requisition # [id number] Physician(s): SYDNEY RAHMAN MD Source of Specimen: ENDOCERVICAL/ECTOCERVICAL THIN PREP Clinical Information: Date of Last Menstrual Period: None Provided md Electronic Signature Alan Mckeon MD Reported: 11/13/2014 Also seen by: GALLO Otero (ASCP) [facility] Chlamydia trachomatis Date Ordered: 11/10/2014 Status: Signed Out Date Reported: 11/10/2014 Chlamydia trachomatis NEGATIVE Electronic Signature Marilynn [facility] [email or web address] [facility] Neisseria gonorrhoeae Date Ordered: 11/10/2014 Status: Signed Out Date Reported: 11/10/2014 Neisseria gonorrhoeae NEGATIVE Electronic Signature Marilynn [employer] [facility] ICD-9 Code(s) V72.31 A; 616.9 112.1 12 SPECIMEN DESCRIPTION VAGINAL SPECIMEN RESULT NEGATIVE FOR TRICHOMONAS VAGINALIS NEGATIVE FOR GARDNERELLA VAGINALIS POSITIVE FOR TEODORO SPECIES REPORT STATUS FINAL 11/09/2014 13 SPECIMEN DESCRIPTION VAGINAL SPECIMEN GROUP B STREP CULT. NEGATIVE: BETA HEMOLYTIC STREPTOCOCCI GROUP B B Y PCR CULTURE RESULTS NORMAL VAGINAL BEATRICE NO NEISSERIA GONORRHOEAE ISOLATED REPORT STATUS FINAL 11/11/2014 14 SPECIMEN DESCRIPTION BLADDER URINE CULTURE RESULTS NO GROWTH REPORT STATUS FINAL 11/11/2013 15 Cytology Laboratory [address] [facility], [address] [place] [address] CYTOLOGY REPORT Name: Ana Major : 1980 (Age: 33) Sex: F Location: [facility] Med. Rec. # [id number] Date Collected: 10/29/2013 Billing #: [id number] Date Received: 10/29/2013 Requisition # [id number] Physician(s): SYDNEY RAHMAN MD Source of Specimen: ENDOCERVICAL/ECTOCERVICAL THIN PREP Clinical Information: Date of Last Menstrual Period: None Provided Hormonal History: IUD Interpretation: NEGATIVE FOR INTRAEPITHELIAL LESION OR MALIGNANCY. Specimen Adequacy: SATISFACTORY FOR EVALUATION. Additional Findings: ENDOCERVICAL/TRANSFORMATION ZONE PRESENT. kfs Electronic Signature GALLO Patel (ASCP) Reported: 11/03/2013 [facility] [email or web address] [facility] ICD-9 Code(s) V72.31 16 SPECIMEN DESCRIPTION BLADDER URINE CULTURE RESULTS NO GROWTH REPORT STATUS FINAL 10/30/2013 17 CONFIRMATION TEST TEMPORARILY NOT AVAILABLE DUE TO A NATIONAL REAGENT BACKORDER. 18 [employer]. [address] [place] [address] GYNECOLOGIC CYTOLOGY REPORT Accession Number: [id number] Source of Specimen(s): A: [facility] Cervical / Endocervical Pap Smear - One Vial Clinical Diagnosis and History: Date of Last Menstrual Period: None Provided Other Clinical Conditions: Last Pap Smear: 09/26/11 IUD REFLEX TO DIGENE HPV ASSAY IF RESULTS OF THIS PAP ARE ASCUS Specimen Adequacy Satisfactory for evaluation Presence of endocervical/transformation zone component General Categorization Negative for intraepithelial lesion or malignancy Interpretation NEGATIVE FOR INTRAEPITHELIAL LESION OR MALIGNANCY Acute inflammatory cells Reported: 10/04/2012 Electronically Signed Out By Jazmine HOLDER(ASCP) [facility] 19 SOURCE - CERVICAL BY AMPLIFIED DNA PROBE PERFORMED AT [address] [place] [id number] SOURCE - CERVICAL BY AMPLIFIED DNA PROBE PERFORMED AT [address] [place] [id number] SPECIMEN DESCRIPTION VAGINAL SPECIMEN GROUP B STREP CULT. NEGATIVE FOR BETA HEMOLYTIC STREPTOCOCCI GROUP B BY PCR. CULTURE RESULTS NORMAL VAGINAL BEATRICE NO NEISSERIA GONORRHOEAE ISOLATED REPORT STATUS FINAL 10/05/2012 22 SPECIMEN DESCRIPTION BLADDER URINE CULTURE RESULTS <10,000 CFU/ML REPRESENTING URETHRAL BEATRICE REPORT STATUS FINAL 09/27/2011 23 [employer]. [address] [place] [address] GYNECOLOGIC CYTOLOGY REPORT Accession Number: [id number] Source of Specimen(s): A: SurePath Cervical / Endocervical Pap Smear - One Vial Clinical Diagnosis and History: Date of Last Menstrual Period: None Provided Other Clinical Conditions: Last Pap Smear: 07/08 REFLEX TO DIGENE HPV ASSAY IF RESULTS OF THIS PAP ARE ASCUS Specimen Adequacy Satisfactory for evaluation Presence of endocervical/transformation zone component General Categorization Negative for intraepithelial lesion or malignancy Interpretation NEGATIVE FOR INTRAEPITHELIAL LESION OR MALIGNANCY Acute inflammatory cells Shift in beatrice suggestive of bacterial vaginosis Reported: 09/28/2011 Electronically Signed Out By Jazmine HOLDER(ASCP) [facility] 24 SPECIMEN DESCRIPTION VAGINAL SPECIMEN RESULT POSITIVE FOR GARDNERELLA VAGINALIS NEGATIVE FOR TEODORO SPECIES NEGATIVE FOR TRICHOMONAS VAGINALIS REPORT STATUS FINAL 09/26/2011 25 SOURCE - CERVICAL BY AMPLIFIED DNA PROBE PERFORMED AT [address] [place] [address] 26 SOURCE - CERVICAL BY AMPLIFIED DNA PROBE PERFORMED AT [address] [place] [address] 27 SPECIMEN DESCRIPTION VAGINAL SPECIMEN SPECIAL REQUESTS DO SENSI IF GRP B GROUP B STREP CULT. NEGATIVE FOR BETA HEMOLYTIC STREPTOCOCCI GROUP B BY PCR. CULTURE RESULTS MANY GARDNERELLA VAGINALIS NO NEISSERIA GONORRHOEAE ISOLATED REPORT STATUS FINAL 09/29/2011 28 INTERPRETATION: LESS THAN 6 NEGATIVE 6 - 10 BORDERLINE (SUGGEST REPEAT IN 48 HOURS) APPROX HCG RANGE WEEKS POST LMP 11 - 130 3 - 4 WEEKS 75 - 2600 4 - 5 WEEKS 850 - 75074 5 - 6 WEEKS 4000 - [id number] 6 - 7 WEEKS 87365 - 086004 7 - 12 WEEKS 47182 - 643124 12 - 16 WEEKS 1400 - 93373 16 - 29 WEEKS 940 - 83212 29 - 41 WEEKS 29 PROGESTERONE REFERENCE RANGE: MALE 0.14 - 2.06 NG/ML FEMALE MENSTRUATING FOLLICULAR 0.31 - 1.52 NG/ML MID-LUTEAL 5.16 - 18.56 MG/ML POSTMENOPAUSAL < 0.78 NG/ML 1ST TRIMESTER 4.73 - 50.74 NG/ML 2ND TRIMESTER 19.41 - 45.30 NG/ML 30 SPEC EXP DATE 07/24/2010 PATIENT ABO/Rh A POSITIVE ANTIBODY SCREEN NEGATIVE TESTING SITE PERFORMED AT [place] [address] BLOOD BANK COMMENT BLOOD TYPE CONFIRMED. 31 [facility]. [address] [place] [address] GYNECOLOGIC CYTOLOGY REPORT Accession Number: [id number] Source of Specimen(s): A: SurePath Cervical / Endocervical Pap Smear - One Vial Clinical Diagnosis and History: Date of Last Menstrual Period: None Provided Other Clinical Conditions: Last Pap Smear: 12/07 LGSIL IUD REFLEX TO DIGENE HPV ASSAY IF RESULTS OF THIS PAP ARE ASCUS Specimen Adequacy Satisfactory for evaluation Presence of endocervical/transformation zone component General Categorization Negative for intraepithelial lesion or malignancy Interpretation NEGATIVE FOR INTRAEPITHELIAL LESION OR MALIGNANCY Reported: 07/25/2010 Electronically Signed Out By Luh Boyle SCT(ASCP)([facility]) Loading Inspector: Patti Gavin CT(ASCP) [facility] jc QC Reviewed: [address] [place] [address] Surgical Pathology Report Specimen(s) Received: A: Cervical cone Clinical Diagnosis and History: Right labia majora Gross Description: Specimen received in formalin labeled with the patient's name are four irregular to elongated pieces of rubbery, caba tissue partially covered by white caba to red caba granular surfaces. There is focal adherent mucoid material. The pieces range from 1.7 x 1 x 0.5 cm up to 1.9 x 1.3 x 0.5 cm. The possible endocervical margins are inked blue and the remaining margins inked black. The specimens are sectioned and separately submitted as follows: A1-2, A3-4, A5-6, and A7-8. Also received is a 2 x 1.5 x 0.4 cm aggregate of blood tinged mucus and additional red caba, rubbery, soft tissue fragments. The additional fragments are submitted as A9. taco corrales/jbs Comments: [id number] and [id number] are reviewed. 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 JEF I multifocally extends to apparent ecto and endocervical resection margins, in the planes of section, on multiple levels examined. Orientation is limited by the fragmented nature of the specimen. Processed at [facility], Histopathology, [address] [place] [address], [id number]. Reported at [facility] at [facility], [address] [place] [address], [id number]. Reported: 03/11/2010 Electronically Signed Out By Cullen Santana M.D. [facility] This report may include one or more immunohistochemical or in-situ hybridization results. Testing has been developed and the performance characteristics were determined by [facility] as required by CLIA '88 regulations. The tests may not have been approved for a given specific use by the US Food and Drug Administration, but the FDA has determined that such approval is not necessary for clinical use. ICD9 Code: A: 622. 33 SPECIMEN DESCRIPTION VAGINAL SPECIMEN RESULT NEGATIVE FOR TRICHOMONAS VAGINALIS POSITIVE FOR GARDNERELLA VAGINALIS NEGATIVE FOR TEODORO SPECIES PERFORMED AT [place] [address] REPORT STATUS FINAL 03/09/2010 34 SPECIMEN DESCRIPTION VAGINAL/CERVICAL SPECIAL REQUESTS NONE CULTURE RESULTS MANY TEODORO ALBICANS MANY GARDNERELLA VAGINALIS NO NEISSERIA GONORRHOEAE ISOLATED REPORT STATUS FINAL 03/12/2010 35 POLYMERASE CHAIN REACTION ASSAY WAS NEGATIVE FOR HERPES SIMPLEX VIRUS TYPES I AND II. THIS TEST WAS DEVELOPED AND ITS PERFORMANCE CHARACTERISTICS DETERMINED BY THE DEPT. OF PATHOLOGY, [facility]. IT HAS BEEN APPROVED BY THE [facility] DEPT. OF HEALTH, BUT HAS NOT BEEN CLEARED OR APPROVED BY THE US FOOD AND DRUG ADMIN. THIS RESULT SHOULD NOT BE USED THE SOLE CRITERION FOR DIAGNOSIS. [address] [address] [place] [address] [address] [place] [address] Surgical Pathology Report Specimen(s) Received: A: Endocervical curettings B: 11:30 cervical biopsy Clinical Diagnosis and History: {Not Provided} Gross Description: Specimen A received in formalin labeled "ECC" is a cervical brush with adherent, clear mucoid material and minute, possible, white caba soft tissue fragments. The brush is scraped, specimen is filtered through a biopsy bag, and aggregates 0.7 x 0.7 x 0.1 cm. The specimen is inked and entirely submitted, but may fail to process. Specimen B received in formalin labeled "11:30" is a 0.5 x 0.4 x 0.1 cm irregular, white caba, possible soft tissue fragment with prominent adherent mucus. The specimen is inked green and totally submitted in one cassette. taco corrales/jbs Comments: [id number] is reviewed. Diagnosis: A) DESIGNATED ECC: No significant pathologic changes. Negative for dysplasia on multiple levels examined. B) DESIGNATED 11:30 CERVICAL: JEF I (mild dysplasia and HPV change/LSIL), with endocervical glandular involvement. No definite high grade dysplasia is identified by routine light microscopy, on multiple levels examined. Immunohistochemistry for P16 is pending, and will be reported in an addendum. Processed at [facility], Histopathology, [address] [place] [address], [id number]. Reported at [facility] at [facility], [address] [place] [address], [facility]. Reported: 01/26/2010 Electronically Signed Out By Cullen Santana M.D. [facility] This report may include one or more immunohistochemical or in-situ hybridization results. Testing has been developed and the performance characteristics were determined by [facility] as required by CLIA '88 regulations. The tests may not have been approved for a given specific use by the US Food and Drug Administration, but the FDA has determined that such approval is not necessary for clinical use. ICD9 Code: 622.1 V71.9 Procedures/Addenda Addendum Date Ordered: 01/26/2010 Status: Signed Out Date Complete: 01/26/2010 By: Elena Kaur Date Reported: 01/27/2010 Addendum Diagnosis B) Immunohistochemistry for P16 demonstrates focal JEF II (moderate dysplasia/HSIL).. Addendum Comment {Not Entered} Cullen Santaan M.D 38 [facility]. [address] [place] [address] GYNECOLOGIC CYTOLOGY REPORT Accession Number: [id number] Source of Specimen(s): A: SurePath Cervical / Endocervical Pap Smear - One Vial Clinical Diagnosis and History: Date of Last Menstrual Period: None Provided Other Clinical Conditions: Last Pap Smear: 09/05 REFLEX TO DIGENE HPV ASSAY IF RESULTS OF THIS PAP ARE ASCUS Specimen Adequacy Satisfactory for evaluation Presence of endocervical/transformation zone component General Categorization Epithelial cell abnormality Interpretation LOW GRADE SQUAMOUS INTRAEPITHELIAL LESION (LSIL) Recommendations Recommend colposcopic examination and biopsy or further follow-up as clinically indicated. Reported: 12/22/2009 Electronically Signed Out By Danny Murdock MD Loading Inspector: Lin HOLDER(ASCP) [facility] 39 SPECIMEN DESCRIPTION VAGINAL SPECIMEN RESULT NEGATIVE FOR TRICHOMONAS VAGINALIS NEGATIVE FOR GARDNERELLA VAGINALIS NEGATIVE FOR TEODORO SPECIES REPORT STATUS FINAL 12/20/2009 40 SOURCE - CERVICAL BY AMPLIFIED DNA PROBE PERFORMED AT [address] [place] [address] 41 SOURCE - CERVICAL BY AMPLIFIED DNA PROBE PERFORMED AT [address] [place] [address] 42 SPECIMEN DESCRIPTION URINE, COLLECTION METHOD NOT SPECIFIED CULTURE RESULTS NO GROWTH REPORT STATUS FINAL 12/21/2009 43 SPECIMEN DESCRIPTION VAGINAL/CERVICAL SPECIAL REQUESTS NONE CULTURE RESULTS NORMAL VAGINAL BEATRICE NO NEISSERIA GONORRHOEAE ISOLATED REPORT STATUS FINAL 12/22/2009 44 SPECIMEN DESCRIPTION VAGINAL SPECIMEN RESULT POSITIVE FOR GARDNERELLA VAGINALIS NEGATIVE FOR TEODORO SPECIES NEGATIVE FOR TRICHOMONAS VAGINALIS REPORT STATUS FINAL 03/15/2009 45 PERFORMED AT [place] [address] 46 SPECIMEN DESCRIPTION URINE, COLLECTION METHOD NOT SPECIFIED CULTURE RESULTS NO GROWTH REPORT STATUS FINAL 11/12/2008 47 SPECIMEN DESCRIPTION MIDSTREAM URINE,CLEAN CATCH CULTURE RESULTS NO GROWTH REPORT STATUS FINAL 09/04/2008 48 LABORATORY [facility]. [address] [place] [address] GYNECOLOGIC CYTOLOGY REPORT Accession Number: [id number] Source of Specimen(s): A: SurePath Endocervical Pap Smear - One Vial Clinical Diagnosis and History: Date of Last Menstrual Period: None Provided Other Clinical Conditions: IUD REFLEX TO DIGENE HPV ASSAY IF RESULTS OF THIS PAP ARE ASCUS Specimen Adequacy Satisfactory for evaluation Presence of endocervical/transformation zone component General Categorization Negative for intraepithelial lesion or malignancy Interpretation NEGATIVE FOR INTRAEPITHELIAL LESION OR MALIGNANCY Reported: 09/08/2008 Electronically Signed Out By Patti Marshall CT(ASCP) Loading Inspector: Patti Gavin CT(ASCP) [facility] ICD9 Code: V72.31 QC Reviewed: Y Procedures Date Code Description Status 11/15/2017 75500 Ultrasound Transvaginal Sonogram Completed 10/02/2012 91441 IUD Removal Completed 10/02/2012 40571 IUD- Insert Intrauterine Device Completed 05/30/2010 45009 Credit Adjustment Completed 03/09/2010 30991 Colposcopy Cervic W/Loop Electrode Biopsy(S) Of The Cervix Completed 01/24/2010 28979 Colposcopy Cervix W/BX & Endocervical Curettage Completed 04/15/2009 70115 Injection:Prophylactic Diagnostic Completed 10/19/2008 69058 Laparoscopy:Diagnostic Abdomen-Peritoneum,Omentum,W/Wo Completed Specimens 09/03/2008 10494 Ultrasound Transvaginal Sonogram Completed 2007 03350 Ultrasound Transvaginal Sonogram Completed 07/23/2007 85971 IUD- Insert Intrauterine Device Completed 05/24/2007 89653 Labial Reduction Excision Vulvectomy Simple:Partial Completed Encounters Type Date Location Provider Dx Diagnosis Office Visit 01/02/2017 Main Office Sydney Rahman, Z01.419 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 3: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 [place] (general) (routine) w/o abn findings R30.0 Dysuria Office Visit 11/24/2015 4:10p Main Office Sydney Rahman N76.0 Acute vaginitis [place] Z01.411 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 (general) (routine) w abnormal findings Office Visit 01/20/2015 3:00p Main Office Sydney 616.10 Vaginitis & [place] Rahman Vulvovaginitis Unspec 625.9 Pelvic Pain Office Visit 11/09/2014 9:30a Main Office Sydney V72.31 Routine Tray Delivery Aide [place] Rahman Screening Examination 623.5 Leukorrhea Not Spec as Infective 626.4 Irregular Menstrual Cycle 625.9 Pelvic Pain Office Visit 11/10/2013 11:30a Main Office Annetta Coles, 599.70 Hematuria, CNM Unspecified Office Visit 10/29/2013 9:40a Main Office [place] V72.31 Routine Tray Delivery Aide [place] Rahman Screening Examination 788.41 Urinary Frequency Office Visit 10/02/2012 1:40p Main Office [place] V72.31 Routine Tray Delivery Aide [place] Rahman Screening Examination 625.9 Pelvic Pain 626.0 Menstruation Absence V25.11 Encounter For Insertion Of Intrauterine Contraceptive Device V25.12 Encounter For Removal Of Intrauterine Contraceptive Device Office Visit 09/26/2011 11:15a Main Office [place] V72.31 Routine Tray Delivery Aide [place] Rahman Screening Examination 788.41 Urinary Frequency 623.5 Leukorrhea Not Spec as Infective 625.9 Pelvic Pain Office Visit 07/21/2010 9:45a Main Office Sydney Rahman 626.4 Irregular M.DLubna Menstrual Cycle 622.10 Dysplasia Of Cervix NOS 625.9 Pelvic Pain Office Visit 03/09/2010 11:30a Main Office [place] 616.10 Vaginitis & [place] Rahman Vulvovaginitis Unspec 622.10 Dysplasia Of Cervix NOS Office Visit 01/24/2010 10:15a Main Office [place] 622.10 Dysplasia Of [place] Rahman Cervix NOS Office Visit 12/20/2009 10:30a Main Office [place] V72.31 Routine Tray Delivery Aide [place] Rahman Screening Examination 616.10 Vaginitis & Vulvovaginitis Unspec 625.9 Pelvic Pain Office Visit 08/09/2009 1:00p Main Office [place] 617.3 Endometriosis Pelvic [place] Rahman Peritoneum Office Visit 04/12/2009 1:40p Main Office [place] 625.9 Pelvic Pain [place] Rahman Office Visit 03/15/2009 3:00p Main Office [place] 616.10 Vaginitis & [place] Rahman Vulvovaginitis Unspec Office Visit 11/11/2008 11:10a Main Office Juan Gross 788.1 Dysuria , M.D. Office Visit 10/15/2008 11:40a Main Office [place] 625.9 Pelvic Pain [place] Rahman Office Visit 09/03/2008 2:00p Main Office [place] V72.31 Routine Tray Delivery Aide [place] Rahman Screening Examination 625.9 Pelvic Pain Office Visit 09/03/2007 1:30p Main Office Sydney Rahman, 626.4 Irregular M.DLubna Menstrual Cycle 625.9 Pelvic Pain Office Visit 05/09/2007 1:40p Main Office [place] V72.31 Routine Tray Delivery Aide [place] Rahman Screening Examination 616.10 Vaginitis & Vulvovaginitis Unspec 626.0 Menstruation Absence Plan of Treatment Future Appointment(s):01/15/2019 3:30 pm - Sydney Rahman M.D. at Main [facility]2301/09/2018 - Sydney Rahman M.D.AllComments:discussed IUD changeout this year
--- OUTSIDE RECORDS SUMMARY | 2018-01-22 16:34 | XMS REPORT ---
:1980 External Reference #:[id number] Author Organization [facility] Address [address] [place] [address] Phone [phone] Care Team Providers Name Role Phone Effie Hurtado MD Primary Care Physician Unavailable Payers Type Date Identification Numbers Payment Provider Subscriber Commercial Policy Number: [id number] Abdullahi Major PayID: [id number] [address] [place] [id number] Problems Description No Information Family History Date Family Member(s) Problem(s) Comments General Hypertension General Cancer Social History Type Date Description Comments Lives With Spouse Occupation Currently Working ETOH Use Denies alcohol use Smoking Patient is a current smoker, smokes every day Exercise Type/Frequency Exercises sporadically Allergies, Adverse Reactions, Alerts Date Description Reaction Status Severity Comments 01/08/2018 Penicillin hives active 01/08/2018 Depo-Medrol hives active Medications Medication Date Status Form Strength Qnty SIG Indications Ordering Provider Topiramate Active Tablets 50mg Unknown 000 Trospium Chloride Active Tablets 20mg Unknown 000 Morphine Sulfate Active Tablets ER 15mg Unknown ER 000 Ventolin HFA Active Aerosol 108(90Base) Unknown 000 mcg/Act Cyclobenzaprine Active Tablets 10mg Unknown HCL 000 Sertraline HCL Active Tablets 50mg Unknown 000 Trazodone HCL Active Tablets 100mg Unknown 000 Prazosin HCL Active Capsules 2mg Unknown 000 Vital Signs Date Vital Result Comment 01/08/2018 Height 63 inches 5'3" Weight 182.00 lb BP Systolic 118 mmHg BP Diastolic 72 mmHg Respiratory Rate 18 /min Body Temperature 98.4 F Pain Level 6 BMI (Body Mass Index) 32.2 kg/m2 Results Description No Information Procedures Description No Information Plan of Care No Information Available
--- OUTSIDE RECORDS SUMMARY | 2018-01-22 16:34 | XMS REPORT ---
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 /min BP Systolic 124 mmHg BP Diastolic 60 mmHg 02/08/2007 Body Temperature 97.2 F Weight 170.00 lb Heart Rate 68 /min BP Systolic 126 mmHg BP Diastolic 68 mmHg Results Test Date Test Result H/L Range Note CBC with Auto Diff-fcmg 12/26/2017 WBC 10.6 K/uL 4.1-11.0 1 RBC 4.45 M/uL 4.00-5.40 1 Hemoglobin 14.0 gm/dL 12.0-16.0 1 Hematocrit 41.8 % 36.0-47.0 1 MCV 93.8 fL 80.0-97.0 1 MCH 31.5 pg 27.0-32.0 1 MCHC 33.6 g/dL 32.0-36.0 1 RDW 13.0 % 11.5-14.5 1 PLT Count 354 K/ul 140-400 1 MPV 7.5 FL 7.1-10.7 1 Neutrophil 59.0 % 35.0-75.0 1 Lymphocyte 31.0 % 16.0-52.0 1 Monocyte 7.1 % 2.0-10.0 1 Eosinophil 2.3 % 0.0-5.0 1 Basophil 0.6 % 0.0-4.0 1 Abs Neutrophils 6.3 K/uL 2.1-8.0 1 Abs Lymphocytes 3.3 K/uL 0.8-5.5 1 Abs Monocytes 0.8 K/uL 0.1-1.0 1 Abs Eosinophils 0.2 K/uL 0.0-0.5 1 Abs Basophils 0.1 K/uL 0.0-0.3 1 Laboratory test finding 11/27/2017 TSH 1.54 uIU/mL 0.35-4.94 1 CBC with Auto Diff-fcmg 11/27/2017 WBC 11.5 K/uL High 4.1-11.0 1 RBC 4.44 M/uL 4.00-5.40 1 Hemoglobin 13.8 gm/dL 12.0-16.0 1 Hematocrit 41.1 % 36.0-47.0 1 MCV 92.7 fL 80.0-97.0 1 MCH 31.2 pg 27.0-32.0 1 MCHC 33.6 g/dL 32.0-36.0 1 RDW 13.3 % 11.5-14.5 1 PLT Count 370 K/ul 140-400 1 MPV 6.9 FL Low 7.1-10.7 1 Neutrophil 60.9 % 35.0-75.0 1 Lymphocyte 26.8 % 16.0-52.0 1 Monocyte 8.9 % 2.0-10.0 1 Eosinophil 2.5 % 0.0-5.0 1 Basophil 0.9 % 0.0-4.0 1 Abs Neutrophils 7.0 K/uL 2.1-8.0 1 Abs Lymphocytes 3.1 K/uL 0.8-5.5 1 Abs Monocytes 1.0 K/uL 0.1-1.0 1 Abs Eosinophils 0.3 K/uL 0.0-0.5 1 Abs Basophils 0.1 K/uL 0.0-0.3 1 Comprehensive Met Panel-FCM 11/27/2017 Sodium 139 mmol/L 135-146 1, 2 Potassium 4.1 mmol/L 3.5-5.2 1 Chloride# 110 mmol/L 97-110 1, 3 Carbon Dioxide 21 mmol/L Low 24-34 1 Glucose 107 mg/dL High 70-105 1 BUN 14 mg/dL 6-26 1 Creatinine 0.8 mg/dL 0.5-1.4 1 Calcium 8.9 mg/dL 8.5-10.2 1 Total Protein 6.3 g/dL 6.0-8.0 1 Albumin 3.7 g/dL 3.6-4.9 1 Globulin 2.6 g/dL 2.0-3.5 1 A/G Ratio 1.4 Ratio 1.0-2.2 1 Total Bilirubin 0.3 mg/dL 0.1-1.3 1 Alkaline Phosphatase 45 U/L 24-140 1 Alt 12 U/L 3-42 1 Ast 11 U/L 8-42 1 Shy Egfr >60 >60 1, 4 Non Syh Egfr >60 >60 1, 5 Anion Gap 8 mmol/L 5-15 1, 6 Laboratory test finding 05/17/2016 TSH 1.20 uIU/mL 0.35-4.94 Esr 13 mm/hr 0-20 CBC With Auto Diff 05/17/2016 WBC 10.3 K/uL 4.1-11.0 RBC 4.75 M/uL 4.00-5.40 Hemoglobin 15.0 gm/dL 12.0-16.0 Hematocrit 44.6 % 36.0-47.0 MCV 93.9 fL 80.0-97.0 MCH 31.5 pg 27.0-32.0 MCHC 33.6 g/dL 32.0-36.0 RDW 13.1 % 11.5-14.5 PLT Count 410 K/ul High 140-400 Neutrophil 65.9 % 35.0-75.0 Lymphocyte 24.2 % 16.0-52.0 Monocyte 7.1 % 2.0-10.0 Eosinophil 1.9 % 0.0-5.0 Basophil 0.9 % 0.0-4.0 Abs Neutrophils 6.8 K/uL 2.1-8.0 Abs Lymphocytes 2.5 K/uL 0.8-5.5 Abs Monocytes 0.7 K/uL 0.1-1.0 Abs Eosinophils 0.2 K/uL 0.0-0.5 Abs Basophils 0.1 K/uL 0.0-0.3 Comprehensive Metabolic (CMP) 05/17/2016 Sodium 136 mmol/L 134-142 Potassium 4.2 mmol/L 3.5-5.2 Chloride 104 mmol/L 97-109 Carbon Dioxide 26 mmol/L 24-34 Glucose 93 mg/dL 70-105 BUN 7 mg/dL 6-26 Creatinine 0.8 mg/dL 0.5-1.4 Calcium 9.4 mg/dL 8.5-10.2 Total Protein 6.9 g/dL 6.0-8.0 Albumin 3.8 g/dL 3.6-4.9 Globulin 3.1 g/dL 2.0-3.5 A/G Ratio 1.2 Ratio 1.0-2.2 Total Bilirubin 0.3 mg/dL 0.1-1.3 Alkaline Phosphatase 53 U/L 24-140 Alt 11 U/L 3-42 Ast 10 U/L 8-42 Anion Gap 10 mmol/L 6-14 Shy Egfr >60 >60 7 Non Shy Egfr >60 >60 8 Celiac Disease Panel-RL 05/17/2016 Gliadin Peptide Iga 4 [arb'U] (<20) 9 Gliadin Peptide Igg 2 [arb'U] (<20) 10 Iga @ 236 mg/dL (71-374) Transglutaminase Iga 4 [arb'U] (<20) 11 Transglutaminase Igg 2 [arb'U] (<20) 12 Measles,Mumps,Rubella Panel-RL 10/18/2015 Rubella Igg AB POSITIVE AI 13 , 14 Measles Igg AB POSITIVE AI 13, 15 Mumps Igg (Immune) POSITIVE AI 13, 16 Laboratory test finding 10/18/2015 Varicella Zost Igg POSITIVE AI 13, 17 1 Urinalysis DIP (In-House) 12/30/2013 Z#Color EVIN Z#Appearance CLEAR Urine,Leukocytes N Nitrite N Urobilinogen N Urine,Protein N Z#PH Urine 7.0 Z#Blood, Urine N Z#Specific Honor 1.020 Z#Ketones Urine N Z#Bili,Urine N Z#Glu Urine N Urine,WBC N/A Urine,RBC N/A Cast N/A Urine,Crystals N/A Amprphous Precipitates N/A Z#Bacteria N/A Mucous Threads N/A Epithelial Cells N/A Comprehensive Metabolic (CMP) 04/03/2012 Sodium 140 mmol/L 134-142 13 Potassium 4.2 mmol/L 3.5-5.2 13 Chloride 106 mmol/L 97-109 13 Carbon Dioxide 28 mmol/L 24-34 13 Glucose 85 mg/dL 70-105 13 BUN 7 mg/dL 6-26 13 Creatinine 0.6 mg/dL 0.5-1.4 13 Calcium 9.3 mg/dL 8.5-10.2 13 Total Protein 6.8 g/dL 6.0-8.0 13 Albumin 3.9 g/dL 3.6-4.9 13 Globulin 2.9 g/dL 2.0-3.5 13 A/G Ratio 1.3 Ratio 1.0-2.2 13 Total Bilirubin 0.3 mg/dL 0.1-1.3 13 Alkaline Phosphatase 39 U/L 24-140 13 Alt 11 U/L 3-42 13 Ast 10 U/L 8-42 13 Anion Gap 10 mmol/L 6-14 13 Shy Egfr >60 >60 13, 18 Non Shy Egfr >60 >60 13, 19 CBC With Auto Diff 04/03/2012 WBC 14.4 K/uL High 4.1-11.0 13 RBC 4.41 M/uL 4.00-5.40 13 Hemoglobin 14.2 gm/dL 12.0-16.0 13 Hematocrit 42.2 % 36.0-47.0 13 MCV 95.7 fL 80.0-97.0 13 MCH 32.2 pg High 27.0-32.0 13 MCHC 33.7 g/dL 32.0-36.0 13 RDW 13.2 % 11.5-14.5 13 PLT Count 318 K/ul 140-400 13 Neutrophil 72.8 % 35.0-75.0 13 Lymphocyte 18.5 % 16.0-52.0 13 Monocyte 6.2 % 2.0-10.0 13 Eosinophil 2.0 % 0.0-5.0 13 Basophil 0.5 % 0.0-4.0 13 Abs Neutrophils 10.5 K/uL High 2.1-8.0 13 Abs Lymphocytes 2.7 K/uL 0.8-5.5 13 Abs Monocytes 0.9 K/uL 0.1-1.0 13 Abs Eosinophils 0.3 K/uL 0.0-0.5 13 Abs Basophils 0.1 K/uL 0.0-0.3 13 Laboratory test finding 04/03/2012 TSH 1.07 uIU/mL 0.34-5.60 13 Cholesterol 202 mg/dL High 50-199 13 Vit D,25 Hydroxy 33 ng/mL 31-100 13 Laboratory test finding 05/11/2010 Igg Subclasses - LA N/A Iga - LA 297 mg/dL 71-374 20 Igg - LA 1350 mg/dL 295-1530 21 Igm - LA 90 mg/dL 40-248 22 Rast 1 Panel 05/11/2010 D Pteronyssinus Conc 0.130 D Pteronyssinus Class 1 CLASS Cat Epithelium Conc <0.05 Cat Epithelium Class 0 CLASS Alternaria Conc <0.05 Alternaria Class 0 CLASS Cladosporium Conc CONCENTRATION LE <SEE NOTE> 23 Cladosporium Class 0 CLASS Femi Conc 0.080 Femi Class 0/1 CLASS CLASS Arcadia/Maple Conc <0.05 Arcadia/Maple Class 0 CLASS Birch Conc <0.05 Birch Class 0 CLASS Ragweed Conc 1.040 Ragweed Class 3 CLASS Aspergillus Conc <0.05 Aspergillus Class 0 CLASS Isleta Conc <0.05 Isleta Class 0 CLASS Bermuda Grass Conc <0.05 Bermuda Grass Class 0 CLASS House Dust Conc <0.05 House Dust Class 0 CLASS Pimentel's Quarter Conc <0.05 Pimentel's Quarter Class 0 CLASS D Farinae Conc 0.990 D Farinae Class 3 CLASS Dog Dander Conc <0.05 Dog Dander Class 0 CLASS Rast2 - 05/11/2010September/[place] Grass Conc 0.090 Shaunna/[place] Grass Class 1 CLASS Penicillium Conc CONCENTRATION LE <SEE NOTE> 24 Penicillium Class 0 CLASS Rhizopus Conc <0.05 Rhizopus Class 0 CLASS Curvularia Conc <0.05 Curvularia Class 0 CLASS Mucor Conc <0.05 Mucor Class 0 CLASS Umbarger Conc 0.080 Umbarger Class 0/1 CLASS CLASS Elm Conc <0.05 Elm Class 0 CLASS Shamrock Conc <0.05 Shamrock Class 0 CLASS Richmond Conc <0.05 Richmond Class 0 CLASS Mugwort Conc <0.05 Mugwort Class 0 CLASS Slovak Plantain Conc <0.05 Slovak Plantain Class 0 CLASS Laboratory test finding 05/11/2010 Ige, Total 54 IU/mL 0.0-100.0 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 Culture - LA (SEE NOTE) 25 Allergy Interpretation SEE NOTE 26 Laboratory test finding 05/11/2010 Iga @ 297 mg/dL (71-374) Igg @ 1350 mg/dL (700-1600) Igm @ 90 mg/dL (40-248) Igg Subclasses 05/11/2010 Igg Subclass 1 614 mg/dL 27 Igg Subclass 2 560 mg/dL High 28 Igg Subclass 3 100 mg/dL 29 Igg Subclass 4 59 mg/dL 30 Laboratory test finding 02/09/2010 Throat Culture NO BETA HEMOLYTI <SEE 31 NOTE> 1 Urinalysis DIP (In-House) 11/22/2009 Z#Color YELLOW Z#Appearance CLEAR Z#Urine,Leukocytes N Z#Nitrite N Z#Urobilinogen N Z#Urine,Protein TRACE Z#PH Urine 6.0 Z#Blood, Urine TRACE NH Z#Specific Honor 1.030 Z#Ketones Urine N Z#Bili,Urine N Z#Glu Urine N Z#Urine,WBC NA Z#Urine,RBC NA Z#Cast NA Z#Urine,Crystals NA Z#Amprphous Precipitates NA Z#Bacteria NA Z#Mucous Threads NA Z#Epithelial Cells NA Laboratory test finding 11/22/2009 Urine Culture NO GROWTH 1 This sample is drawn by:bs 2 Updated reference range on new analyzer 3 Updated reference range on new analyzer 4 Concerning GFR Guidelines for Americans: Normal function or mild renal disease, if clinically at risk: >/=60 mL/min Moderately decreased: 30-59 Severely decreased: 15-29 Renal failure: <15 5 Concerning GFR Guidelines: Normal function or mild renal disease, if clinically at risk: >/=60 mL/min Moderately decreased: 30-59 Severely decreased: 15-29 Renal failure: <15 Glomerular Filtration Rate (GFR) is estimated based on the MDRD equation, which assumes a steady state for creatinine as recommended by the National Kidney Disease Education Program in conjunction with the National Institutes of Health and the National Kidney Foundation. Clinical conditions in which it may be necessary to measure GFR by using clearance methods include extremes of age and body size, severe malnutrition or obesity, diseases of skeletal muscle, paraplegia or quadriplegia, vegetarian diet, rapidly changing kidney function, and calculation of the dose of potentially toxic drugs that are excreted by the kidneys. 6 Updated Reference Range 7 Concerning GFR Guidelines for Americans: Normal function or mild renal disease, if clinically at risk: >/=60 mL/min Moderately decreased: 30-59 Severely decreased: 15-29 Renal failure: <15 8 Concerning GFR Guidelines: Normal function or mild renal disease, if clinically at risk: >/=60 mL/min Moderately decreased: 30-59 Severely decreased: 15-29 Renal failure: <15 Glomerular Filtration Rate (GFR) is estimated based on the MDRD equation, which assumes a steady state for creatinine as recommended by the National Kidney Disease Education Program in conjunction with the National Institutes of Health and the National Kidney Foundation. Clinical conditions in which it may be necessary to measure GFR by using clearance methods include extremes of age and body size, severe malnutrition or obesity, diseases of skeletal muscle, paraplegia or quadriplegia, vegetarian diet, rapidly changing kidney function, and calculation of the dose of potentially toxic drugs that are excreted by the kidneys. 9 INTERPRETATION OF RESULTS: < 20 UNITS NEGATIVE 20-30 UNITS WEAK POSITIVE > 30 UNITS MODERATE TO STRONG POSITIVE The following result was obtained with the [employer] Danal d/[employer] Gliadin IgA II. Results obtained with other manufacturers' assay methods may not be used interchangeably. The magnitude of the reported IgA level cannot be correlated to an endpoint titer. 10 INTERPRETATION OF RESULTS: < 20 UNITS NEGATIVE 20-30 UNITS WEAK POSITIVE > 30 UNITS MODERATE TO STRONG POSITIVE The following result was obtained with the [employer] Lite Gliadin IgG II. Results obtained with other manufacturers' assay methods may not be used interchangeably. The magnitude of the reported IgG levels cannot be correlated to an endpoint titer. 11 INTERPRETATION OF RESULTS: < 20 UNITS NEGATIVE 20-30 UNITS WEAK POSITIVE > 30 UNITS MODERATE TO STRONG POSITIVE The following result was obtained with the [employer] Lite h-tTG IgA SOLA. Results obtained with other manufacturers' assay methods may not be used interchangeably. The magnitude of the reported IgA level cannot be correlated to an endpoint titer. Performed at [address] [place] [address] 12 INTERPRETATION OF RESULTS: < 20 UNITS NEGATIVE 20-30 UNITS WEAK POSITIVE > 30 UNITS MODERATE TO STRONG POSITIVE The following result was obtained with the [employer] Lite h-tTG IgG SOLA. Results obtained with other manufacturers' assay methods may not be used interchangeably. The magnitude of the reported IgG levels cannot be correlated to an endpoint titer. Performed at [address] [place] [address] Unless otherwise specified, testing performed by [facility] [address] [place] [address] 13 This sample is drawn by:[facility] 14 IgG antibody to Rubella detected. IgG antibody levels are at a level considered to indicate positive immunity. Unless otherwise specified, testing performed by [facility] [address] [place] [id number] 15 IgG antibody to Measles detected. This may indicate that the patient was exposed to Measles through infection or vaccination. Unless otherwise specified, testing performed by [facility] [address] [place] [address] 16 IgG antibody to Mumps detected. This may indicate that the patient was exposed to Mumps through infection or vaccination. Unless otherwise specified, testing performed by [facility] [address] [place] [id number] 17 IgG antibody to VZV detected. This may indicate that the patient was exposed to VZV through infection or vaccination. Unless otherwise specified, testing performed by [facility] [address] [place] [id number] 18 Concerning GFR Guidelines for Americans: Normal function or mild renal disease, if clinically at risk: >/=60 mL/min Moderately decreased: 30-59 Severely decreased: 15-29 Renal failure: <15 19 Concerning GFR Guidelines: Normal function or mild renal disease, if clinically at risk: >/=60 mL/min Moderately decreased: 30-59 Severely decreased: 15-29 Renal failure: <15 Glomerular Filtration Rate (GFR) is estimated based on the MDRD equation, which assumes a steady state for creatinine as recommended by the National Kidney Disease Education Program in conjunction with the National Institutes of Health and the National Kidney Foundation. Clinical conditions in which it may be necessary to measure GFR by using clearance methods include extremes of age and body size, severe malnutrition or obesity, diseases of skeletal muscle, paraplegia or quadriplegia, vegetarian diet, rapidly changing kidney function, and calculation of the dose of potentially toxic drugs that are excreted by the kidneys. 20 [71-374] MG/DL 21 [700-1600] 22 [40-248] 23 CONCENTRATION LESS THAN 0.05 24 CONCENTRATION LESS THAN 0.05 25 SPECIMEN DESCRIPTION LEFT NASAL SPECIAL REQUESTS NONE CULTURE RESULTS TO FOLLOW Unless otherwise specified, testing performed by [facility] [address] [place] [id number] 26 CLASS CONC IU/ml INTERPRETATION Negative <0.05 Negative 0/1 0.05 - 0.08 Equivocal 1 0.08 - 0.15 Positive 2 0.15 - 0.50 Positive 3 0.50 - 2.50 Positive 4 2.50 - 12.50 Positive 5 12.50 - 62.50 Positive 6 >62.50 Positive 27 Reference range: 240 to 1118 28 Reference range: 124 to 549 29 Reference range: 21 to 134 30 Reference range: 7 to 89 INTERPRETATION: For Immunoglobulin G Subclasses 1 - 4 The total IgG (mg/dL) can be derived by the sum of the subclasses IgG1, IgG2, IgG3 and IgG4 values. However, a confirmatory and more precise total IgG is available by the nephelometric method of total IgG (Test # [id number]). Performed by [facility], [address] [place] [id number] [email or web address], Sofi Salinas MD, Lab. Director 31 NO BETA HEMOLYTIC STREPTOCOCCI ISOLATED Procedures Date CPT Code Description Status 11/27/2017 04786 Spirometry /PFT W/O Bronchodialator Completed 01/07/2015 71337 Measure Blood Oxygen Level Multiple Determinations Completed 01/07/2015 18074 Fluoroscopic Guidance Needle Or Cath Tip Spine Or Completed Paraspinous 01/07/2015 89354 Epidural Or Subarachnoid Injection Cervical Or Thoracic Completed 12/28/2014 31723 Measure Blood Oxygen Level Multiple Determinations Completed 12/28/2014 91467 Fluoroscopic Guidance Needle Or Cath Tip Spine Or Completed Paraspinous 12/28/2014 49924 Epidural Or Subarachnoid Injection Cervical Or Thoracic Completed 10/28/2014 05005 Measure Blood Oxygen Level Single Determination Completed 01/17/2013 27326 Admin Of Inj (Therapeutic Phrophylactic Or Diagnostic Completed Subq Inj 02/10/2011 11409 Measure Blood Oxygen Level Single Determination Completed 05/11/2010 14727 Spirometry /PFT W/O Bronchodialator Completed 08/02/2009 22679 Measure Blood Oxygen Level Single Determination Completed 02/02/2009 Colonoscopy Completed 04/01/2007 62930 Airway Inhalation Treatment Completed 03/05/2007 35107 Spirometry /PFT W/O Bronchodialator Completed 03/05/2007 52373 Electrocardiogram Complete Completed Encounters Type Date Location Provider CPT E/M Dx Office Visit 11/27/2017 3:00[place] [address] R06.02 R53.83 F17.219 M25.512 Z68.32 Office Visit 10/22/2017 4:00p [place] [address] F17.219 J45.901 Z68.31 Office Visit 01/19/2017 1:45[place] [address] L60.0 N30.10 M54.5 Office Visit 07/05/2016 4:00[place] [address] J01.00 R19.7 Office Visit 05/17/2016 11:30[place] [address] R19.7 Office Visit 02/23/2016 3:45[place] [address] M25.512 R51 R19.7 Office Visit 11/08/2015 1:30[place] [address] M50.32 S61.214S Office Visit 07/22/2015 11:15[place] [address] J01.00 F17.210 Office Visit 02/09/2015 1:45p MD Miguel Angel Johansen Amy, RPA-C 52492 M50.32 Tristin M54.12 M75.81 Office Visit 01/21/2015 12:00p [place] [address] M50.30 M75.82 Office Visit 10/28/2014 10:30[place] [address] 305.1 466.0 519.11 Office Visit 10/23/2014 9:30a MD Miguel Angel Joahnsen Amy, RPA-C 46781 726.19 Tristin 723.1 722.4 723.4 Office Visit 09/29/2014 11:45[place] [address] 463 786.2 Office Visit 08/14/2014 2:45p Patty Wiley MD Gemelli, Karlee, RPA-C 43227 722.4 Tristin 723.4 723.8 Office Visit 04/28/2014 1:15p [place] [address] 723.1 625.6 305.1 Office Visit 01/26/2014 2:30[place] [address] 382.00 Office Visit 12/30/2013 3:45[place] [address] 300.00 346.01 723.1 788.41 Office Visit 09/18/2013 10:30[place] [address] 461.0 723.1 Office Visit 07/02/2013 3:45[place] [address] 995.3 Office Visit 01/17/2013 1:40p Alisa Avila MD, FAAFP 19993 346.01 Office Visit 06/21/2012 9:50[place] [address] 461.0 V06.1 Office Visit 04/03/2012 1:40[place] [address] 461.0 780.79 Office Visit 01/05/2012 10:30[place] [address] 461.0 300.00 Office Visit 07/31/2011 4:20[place] [address] 461.0 300.00 780.52 Office Visit 07/10/2011 4:00[place] [address] 296.32 300.00 354.0 719.47 Office Visit 03/01/2011 11:50[place] [address] 461.0 Office Visit 02/10/2011 3:00[place] [address] 719.47 719.44 461.0 Office Visit 10/10/2010 5:00[place] [address] 461.0 724.2 Office Visit 08/30/2010 10:50[place] [address] 724.2 296.32 477.0 Office Visit 07/19/2010 2:10p [place] [address] 461.0 Office Visit 05/13/2010 1:30[place] [address] 296.32 Office Visit 05/11/2010 10:30a Zuni Kirstie Hahny, NAREN 44108 473.8 477.0 530.81 Office Visit 04/11/2010 12:50[place] [address] 786.50 V73.89 Office Visit 02/09/2010 2:00[place] [address] 461.0 462 Office Visit 11/22/2009 2:50[place] [address] 595.0 300.00 Office Visit 10/27/2009 11:00[place] [address] 300.00 Office Visit 10/18/2009 12:30[place] [address] 300.00 Office Visit 10/05/2009 1:40[place] [address] 461.0 300.00 Office Visit 09/14/2009 10:50[place] [address] 461.0 Office Visit 08/02/2009 1:10p [place] [address] 729.2 719.49 462 461.0 Office Visit 06/28/2009 4:00[place] [address] 461.0 786.2 Office Visit 06/16/2009 3:00p Alisa Avila MD, [facility] 15337 462 461.0 Office Visit 06/07/2009 12:50[place] [address] 786.2 382.00 462 Office Visit 05/04/2009 12:10p [place] [address] 726.19 726.19 354.1 Office Visit 04/26/2009 2:50[place] [address] 723.1 724.5 726.19 Office Visit 12/28/2008 4:50[place] [address] 724.5 Office Visit 07/01/2008 11:50[place] [address] 726.19 Office Visit 06/24/2008 11:00[place] [address] 724.5 846.1 Office Visit 02/25/2008 3:40p [place] [address] 924.21 Office Visit 11/27/2007 8:10a [place] [address] 719.67 728.71 Office Visit 09/16/2007 2:10p [place] [address] 724.5 Office Visit 07/12/2007 2:10p [place] [address] 382.00 Office Visit 06/28/2007 11:00[place] [address] 132.0 Office Visit 05/07/2007 10:20[place] [address] 461.0 Office Visit 04/08/2007 12:50[place] [address] 493.92 346.20 724.5 Office Visit 04/01/2007 11:30[place] [address] 493.92 346.20 Office Visit 03/19/2007 12:20[place] [address] 664.90 Office Visit 03/05/2007 11:50[place] [address] 786.59 786.09 346.00 Office Visit 02/08/2007 2:40p [place] [address] 845.10 Plan of Care 12/26/2017 - Ashu Adler MDJ45.40 Moderate persistent asthma, uncomplicatedComments:will try flovent now prednisone short coursecontinue singulair needs to quit ryucfdbD23.5 Low back painComments:follows with pain clinic may get benefit from [id number] Elevated white blood cell count, unspecifiedComments:recheckAllNew Medication:Prednisone 50 mgFlovent HFA 44 mcg/ ActReferral:Gisela Mendoza,
[2018-01-22 17:29] VITALS: BP 127/69
--- NOTE | 2018-01-22 18:20 | UC ---
Respiratory Complaint HPI - HPI Summary HPI Summary: 37-year-old female presents with 4 day history of nasal congestion, nasal drainage, sinus pressure, sore throat, bilateral ear fullness, and a harsh nonproductive cough. Associated with fever as high as 101 F, chills, and some chest burning with cough. Family members were sick with similar symptoms last week. Has not had flu shot this year. - History of Current Complaint Chief Complaint: UCRespiratory Stated Complaint: SINUSES, BODY ACHES, COUGH Time Seen by Provider: 01/22/18 17:47 Hx Obtained From: Patient Hx Last Menstrual Period: pt has an IUD and states not getting a menses ?: No Onset/Duration: Gradual Onset, Lasting Days - 4 Severity Initially: Mild Severity Currently: Moderate Pain Intensity: 9 Character: Cough: Nonproductive Aggravating Factors: Deep Breaths, Recumbent Position Alleviating Factors: Nothing Associated Signs And Symptoms: Positive: Fever, Chills, URI, Nasal Congestion, Hoarseness, Sinus Discomfort. Negative: Dyspnea, Wheezing, Hemoptysis, Dizziness - Allergies/Home Medications Allergies/Adverse Reactions: Allergies Allergy/AdvReac Type Severity Reaction Status Date / Time Penicillins Allergy Hives Verified 01/22/18 17:31 bee sting Allergy Difficulty Uncoded 05/14/17 09:22 Breathing steroid inje Allergy Hives Uncoded 01/22/18 18:02 Home Medications: Home Medications Cyclobenzaprine TAB* [Flexeril 10 MG TAB*] 10 mg PO TID PRN 01/22/18 [History Confirmed 01/22/18] Dm/Pseudoephed/Acetaminophen [Day-Time Cold-Flu Softgel] 2 cap PO ONCE 01/22/18 [History Confirmed 01/22/18] Montelukast Sodium TAB* [Singulair 10 MG TAB*] 10 mg PO DAILY 01/22/18 [History Confirmed 01/22/18] Morphine Sulfate [Morphabond ER] 15 mg PO DAILY 01/22/18 [History Confirmed ] SUMAtriptan TAB* [Imitrex TAB*] 50 mg PO PRN 01/22/18 [History] Sertraline* [Zoloft*] 50 mg PO DAILY 01/22/18 [History Confirmed 01/22/18] Topiramate TAB(*) [Topamax 25 MG tab] 25 mg PO DAILY 01/22/18 [History Confirmed 01/22/18] Topiramate [Topamax] 50 mg PO BEDTIME 01/22/18 [History Confirmed 01/22/18] Trospium (NF) [Sanctura (NF)] 20 mg PO DAILY 01/22/18 [History Confirmed ] traZODone TAB* [Desyrel TAB*] 100 mg PO BEDTIME 01/22/18 [History Confirmed ] PMH/Surg Hx/FS Hx/Imm Hx - Additional Past Medical History Additional PMH: Environmental allergies Neurological History: Migraine - Surgical History Surgical History: Yes Surgery Procedure, Year, and Place: c5 c6 fusion withg screws, left shoulder x 2 with anchors, partial labia; right knee, abd laparoscopy; bladder stretch, endometriosis and Mirena tx - Family History Known Family History: Positive: Hypertension - Mother, Other - Hypothyroidism- Mother Breast/Ovarian CA- Mother, "middle aged" Negative: Cardiac Disease, Diabetes - Social History Occupation: Employed Full-time Lives: With Family Alcohol Use: None Substance Use Type: None Smoking Status (MU): Heavy Every Day Tobacco Smoker Type: Cigarettes Amount Used/How Often: 1/2 ppd Length of Time of Smoking/Using Tobacco: age 16 Have You Smoked in the Last Year: Yes - Immunization History Most Recent Influenza Vaccination: never Most Recent Tetanus Shot: 2016 Vaccination Up to Date: Yes Review of Systems Constitutional: Fever, Chills, Fatigue Skin: Negative Eyes: Negative ENT: Sore Throat, Ear Ache, Nasal Discharge, Sinus Congestion Respiratory: Cough Cardiovascular: Negative Gastrointestinal: Negative Genitourinary: Negative Is Patient Immunocompromised?: No All Other Systems Reviewed And Are Negative: Yes Physical Exam Triage Information Reviewed: Yes Appearance: No Pain Distress, Well-Nourished Vital Signs: Initial Vital Signs Temp 98.1 F 01/22/18 17:22 Pulse 72 01/22/18 17:22 Resp 16 01/22/18 17:22 BP 127/69 01/22/18 17:22 Pulse Ox 100 01/22/18 17:22 Vital Signs Reviewed: Yes Eyes: Positive: Conjunctiva Clear. Negative: Discharge ENT: Positive: Pharyngeal erythema - Mild, Nasal congestion, Nasal drainage, TMs normal, Hoarse voice, Sinus tenderness, Uvula midline. Negative: Tonsillar swelling, Tonsillar exudate, Trismus, Muffled voice Neck: Positive: Supple, Nontender, No Lymphadenopathy Respiratory: Positive: Lungs clear, Normal breath sounds, No respiratory distress, Other: - Harsh nonproductive cough Cardiovascular: Positive: No Murmur, Pulses Normal Neurological: Positive: Alert Skin Exam: Normal UC Diagnostic Evaluation - Laboratory O2 Sat by Pulse Oximetry: 100 - Radiology Xray Interpretation: No Acute Changes Radiology Interpretation Completed By: ED Physician - No acute cardiopulmonary pathology noted Respiratory Course/Dx - Course Course Of Treatment: 37 year old female presents with 4 day history of flu-like illness. Her exam was consistent with a viral URI. Lung sounds clear. Patient requested CXR to confirm was not pneumonia. CXR showed no acute cardiopulomary pathology. Rapid flu testing was deferred as patient had been symptomatic for too long to utilize Tamiflu. Recommend symptomatic treatment. - Differential Dx/Diagnosis Differential Diagnosis/HQI/PQRI: Bronchitis, Influenza, Lower Resp Infection, Sinusitis Provider Diagnoses: Acute viral URI Discharge - Sign-Out/Discharge Documenting (check all that apply): Patient Departure All imaging exams completed and their final reports reviewed: No - Discharge Plan Condition: Stable Disposition: HOME Prescriptions: Benzonatate CAP* [Tessalon 100 MG CAP*] 100 mg PO TID PRN #30 cap PRN Reason: Cough Patient Education Materials: Upper Respiratory Infection (ED) Referrals: No Primary Care Phys,NOPCP [Primary Care Provider] - Additional Instructions: Chest x-ray performed in the clinic today was normal. Your symptoms are likely from a viral upper respiratory infection which could include the flu however we are not testing at this time because your duration of symptoms has been too long to begin Tamiflu. Most viral illnesses including no flu run their course over approximately 7-10 days. Be sure to drink plenty of fluids. You may use an lskp-wpv-ktkqqom decongestant such as Sudafed to help with the nasal congestion. Take acetaminophen (Tylenol) or ibuprofen (Motrin, Advil) according to directions as needed for aches pain or fever. I have given you a prescription for Tessalon Perles 1 Every 8 hours as needed for cough. Follow-up with your primary care provider in 7 days if symptoms persist. Seek immediate medical attention if you have a persistent fever greater than 100.5 F despite taking acetaminophen or ibuprofen, you have worsening shortness of breath, or develop any new or worsening symptoms. - Billing Disposition and Condition Condition: STABLE Disposition: Home
--- NOTE | 2018-01-23 06:59 | RAD ---
INDICATION: Cough. COMPARISON: There are no relevant prior studies available for comparison. TECHNIQUE: Dual-energy PA and lateral views of the chest were obtained. FINDINGS: The heart is within normal limits in size. Mediastinal and hilar contours appear within normal limits. The lungs are clear. No pleural effusion is present. IMPRESSION: NO EVIDENCE FOR ACTIVE CARDIOPULMONARY DISEASE. R0
--- NOTE | 2018-01-23 13:07 | UC ---
- Progress Note Progress Note: The radiologist read the x-ray from January 22, 2018 has no acute disease process. This is the same interpretation THE provider. Discharge - Sign-Out/Discharge Documenting (check all that apply): Patient Departure All imaging exams completed and their final reports reviewed: Yes - Discharge Plan Condition: Stable Disposition: HOME Prescriptions: Benzonatate CAP* [Tessalon 100 MG CAP*] 100 mg PO TID PRN #30 cap PRN Reason: Cough Patient Education Materials: Upper Respiratory Infection (ED) Referrals: No Primary Care Phys,NOPCP [Primary Care Provider] - Additional Instructions: Chest x-ray performed in the clinic today was normal. Your symptoms are likely from a viral upper respiratory infection which could include the flu however we are not testing at this time because your duration of symptoms has been too long to begin Tamiflu. Most viral illnesses including no flu run their course over approximately 7-10 days. Be sure to drink plenty of fluids. You may use an xvtc-zyn-vrzfaua decongestant such as Sudafed to help with the nasal congestion. Take acetaminophen (Tylenol) or ibuprofen (Motrin, Advil) according to directions as needed for aches pain or fever. I have given you a prescription for Tessalon Perles 1 Every 8 hours as needed for cough. Follow-up with your primary care provider in 7 days if symptoms persist. Seek immediate medical attention if you have a persistent fever greater than 100.5 F despite taking acetaminophen or ibuprofen, you have worsening shortness of breath, or develop any new or worsening symptoms. - Billing Disposition and Condition Condition: STABLE Disposition: Home
--- NOTE | 2018-01-24 20:57 | UC ---
Discharge - Sign-Out/Discharge Documenting (check all that apply): Post-Discharge Follow Up All imaging exams completed and their final reports reviewed: Yes - Discharge Plan Condition: Stable Disposition: HOME Prescriptions: Benzonatate CAP* [Tessalon 100 MG CAP*] 100 mg PO TID PRN #30 cap PRN Reason: Cough Patient Education Materials: Upper Respiratory Infection (ED) Referrals: No Primary Care Phys,NOPCP [Primary Care Provider] - Additional Instructions: Chest x-ray performed in the clinic today was normal. Your symptoms are likely from a viral upper respiratory infection which could include the flu however we are not testing at this time because your duration of symptoms has been too long to begin Tamiflu. Most viral illnesses including no flu run their course over approximately 7-10 days. Be sure to drink plenty of fluids. You may use an mgvr-vow-zpthmom decongestant such as Sudafed to help with the nasal congestion. Take acetaminophen (Tylenol) or ibuprofen (Motrin, Advil) according to directions as needed for aches pain or fever. I have given you a prescription for Tessalon Perles 1 Every 8 hours as needed for cough. Follow-up with your primary care provider in 7 days if symptoms persist. Seek immediate medical attention if you have a persistent fever greater than 100.5 F despite taking acetaminophen or ibuprofen, you have worsening shortness of breath, or develop any new or worsening symptoms. - Billing Disposition and Condition Condition: STABLE Disposition: Home
== END 2018-01-22 18:35 | disposition home or self-care (01) ==
LOC: UCCORT 15:58
DX: J06.9 Acute upper respiratory infection, unspecified (principal); F17.210 Nicotine dependence, cigarettes, uncomplicated; Z88.0 Allergy status to penicillin; Z91.030 Bee allergy status; Z88.8 Allergy status to other drugs, medicaments and biological substances; J30.2 Other seasonal allergic rhinitis
CPT/HCPCS: 71046; 99212; G0463

== ENCOUNTER → 2018-04-17 11:29 | Day surgery (SDC) | payer BC, OTHER ==
--- NOTE | 2018-04-12 19:47 | HP ---
PREOPERATIVE HISTORY AND PHYSICAL: DATE OF ADMISSION/SURGERY: 04/17/18 DATE OF OFFICE VISIT: 04/12/18 ATTENDING SURGEON: Gisela Mendoza MD * (DICTATED BY CHELSEA ONOFRE) PROCEDURE: Left shoulder arthroscopic decompression, debridement, and possible rotator cuff repair. CHIEF COMPLAINT: Left shoulder. HISTORY OF PRESENT ILLNESS: Ana is a 37-year-old female who presents to the clinic for left shoulder pain due to rotator cuff tear. She has failed conservative measures and therefore agreed to undergo a left shoulder arthroscopic decompression, debridement, and possible rotator cuff repair with Dr. Mendoza on 04/17/18. PAST MEDICAL HISTORY: 1. Asthma. 2. Depression. 3. Anxiety. 4. Chronic back pain. 5. Skin cancer. PAST SURGICAL HISTORY: 1. Left shoulder x2. 2. C5-C6 fusion. 3. Laparoscopy x6. 4. Knee surgery. 5. Rhinoplasty x3. The patient denies prior complications with anesthesia. MEDICATIONS: 1. Topiramate 50 mg. 2. Trospium 20 mg. 3. Morphine sulfate 15 mg. 4. Ventolin 108 mcg/act as needed. 5. Cyclobenzaprine 10 mg 1 by mouth as needed. 6. Prazosin 2 mg 1 by mouth daily. ALLERGIES: PENICILLIN, DEPO-MEDROL. FAMILY HISTORY: Positive for hypertension, cancer, neuropathy and mom with a history of DVT after a femur fracture. 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 She smokes half pack per day. She denies alcohol use. She is right-hand dominant. REVIEW OF SYSTEMS: A 14-point review of systems was reviewed with the patient. Positive for current complaint, otherwise negative. Denies fever, chills, chest pain, shortness of breath, history of bleeding disorder, history of DVT or PE. PHYSICAL EXAMINATION GENERAL: A 37-year-old well-developed, well-nourished female, in no acute distress. VITAL SIGNS: Height 63 inches, weight 189. Temperature 79, blood pressure 120/ 82, respiratory rate 18. BMI 33.6. HEENT: Normocephalic, atraumatic. PERRLA. Throat: Clear. NECK: Supple. PULMONARY: Lungs are clear to auscultation bilaterally. No wheezing, rhonchi, or rales. CARDIO: Regular rate and rhythm. S1, S2. No murmurs, gallops, or rubs. No edema. ABDOMEN: Positive bowel sounds, soft, nontender. NEURO: Alert and oriented x3. Cranial nerves grossly intact. Sensation is intact to light touch. MUSCULOSKELETAL: Left upper extremity, skin is intact. No warmth or erythema. Forward flexion to 80, abduction to 80, external rotation to 30. Full range of motion over the wrist and hand. +4/5 strength to rotator cuff testing with pain. +2 radial pulse. Sensation intact to light touch distally. DIAGNOSTIC STUDIES: MR arthrogram revealed no evidence of full thickness tear of the rotator cuff. The patient has severe impingement. IMPRESSION: Left shoulder impingement, possible rotator cuff tear. PLAN: The patient is scheduled to undergo left shoulder arthroscopic decompression, debridement, and possible rotator cuff repair with Dr. Mendoza on 04/17/18. She is on chronic pain medications, but we will use oxycodone 5, MDD is 6 after surgery to help with postop pain. She will be given Bactrim for antibiotic prophylaxis since she has had prior shoulder surgeries and she will follow up in 10 to 14 days postop for followup and suture removal. CHELSEA ONOFRE [id number]/[facility] #: [id number] PORSHA
[~2018-04-17 11:29] MED LIST: Buffered Lidocaine 0.9% SYRIN* 5 ML/SYR SYRINGE INTRADERM ONE; Clindamycin 900 MG/D5W BAG(*) 900 MG/50 ML BAG IVPB ONE; Dexamethasone IV* 4 MG/ML 1 ML (4 MG) IV SLOW PU ONE; Dexamethasone IV* 4 MG/ML 1 ML (4 MG) ONE; DiMENhydriNATE IV* 50 MG/ML VIAL IV PUSH PRN; DiMENhydriNATE IV* 50 MG/ML VIAL ONE; Famotidine IV* 10 MG/ML 2 ML (20 mg) IV ONE; Famotidine IV* 10 MG/ML 2 ML (20 mg) ONE; HYDROcodone/ACETAMIN 5-325 MG* 1 TAB PO PRN; Ketorolac INJ* 30 MG/ML 1 ML VIAL IV PRN; Ketorolac INJ* 30 MG/ML 1 ML VIAL ONE; Lactated Ringers 1000 ML Bag* 1,000 ML IV SCH; Lidocaine 2% PF * 5 ML VIAL ONE; Midazolam* 1 MG/ML 5 ML VIAL (5 MG) ONE; Naloxone* 0.4 MG/ML 1 ML VIAL IV PRN; Ondansetron INJ* 2 MG/ML VIAL ONE; Propofol* 10 MG/ML 20 ML BTL ONE; ROPIVACAINE 5 MG/ML 30 ML BTL (0.5%) ONE; Rocuronium* 10 MG/ML VIAL ONE; Ropivacaine* 2 MG/ML 20 ML VIAL (0.2%) ONE; Sugammadex * 200 MG/2 ML VIAL IV PUSH ONE; fentaNYL* 50 MCG/ML 2 ML VIAL (100 MCG VIAL) IV PRN; fentaNYL* 50 MCG/ML 2 ML VIAL (100 MCG VIAL) ONE; oxyCODONE TAB* 5 MG TAB PO PRN
[2018-04-17 17:20] VITALS: BP 137/95
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
== END | disposition home or self-care (01) ==
LOC: OR 11:29
PROVIDERS: ATTEND Orthopaedic Surgery
DX: M75.112 Incomplete rotator cuff tear or rupture of left shoulder, not specified as traumatic (principal); M75.42 Impingement syndrome of left shoulder; G89.18 Other acute postprocedural pain; J45.909 Unspecified asthma, uncomplicated; N30.10 Interstitial cystitis (chronic) without hematuria; F41.8 Other specified anxiety disorders; Z79.891 Long term (current) use of opiate analgesic; M54.9 Dorsalgia, unspecified; Z85.828 Personal history of other malignant neoplasm of skin; F17.210 Nicotine dependence, cigarettes, uncomplicated
CPT/HCPCS: 81025; C1713; J1100; J1240; J1885; J2250; J2405; J2704; J2795; J3010

== ENCOUNTER 2018-05-22 12:42 | Emergency (ER) | payer BC, OTHER ==
[2018-05-22 13:07] VITALS: BP 103/78
--- NOTE | 2018-05-22 13:28 | UC ---
Head Injury HPI - HPI Summary HPI Summary: Pt c/o head, neck and bilateral shoulder and upper back pain that began after she slipped on ice ~ 1 hour ago and hit head, and upper back on ice covered pavement this morning. Pt c/o left shoulde pain and weakness. Pt has hx of bilateral shoulder surgery. - History Of Current Complaint Chief Complaint: UCHeadInjury Stated Complaint: S/P [id number],NECK,SHOULDER PAIN Time Seen by Provider: 05/22/18 13:18 Hx Obtained From: Patient Hx Last Menstrual Period: IUD in place ?: No Onset/Duration: Sudden Onset, Still Present, Worse Since Severity Currently: Moderate Severity Initially: Severe Pain Intensity: 9 Character: Sharp, Dull Aggravating Factor(s): Other - movement Alleviating Factor(s): Nothing Associated Signs And Symptoms: Positive: Neck Pain - Risk Factors SDH Risk Factor: Negative Risk Factors For Cervical Spine Injury: Posterior Midline Cervical Spine Tenderness - Allergies/Home Medications Allergies/Adverse Reactions: Allergies Allergy/AdvReac Type Severity Reaction Status Date / Time methylprednisolone Allergy Severe Hives Verified 05/22/18 13:03 [From Depo-Medrol] Penicillins Allergy Severe Hives Verified 05/22/18 13:03 bee sting Allergy Severe Anaphylatic Uncoded 05/22/18 13:03 Shock Home Medications: Home Medications Topiramate [Topamax] 75 mg PO QPM 05/22/18 [History Confirmed 05/22/18] PMH/Surg Hx/FS Hx/Imm Hx Previously Healthy: Yes - Surgical History Surgical History: Yes Surgery Procedure, Year, and Place: c5 c6 fusion withg screws, left shoulder x 2 with anchors, partial labia; right knee, abd laparoscopy; bladder stretch, endometriosis and Mirena tx. rhinoplasty x3, - Family History Known Family History: Positive: Hypertension - Mother, Other - Hypothyroidism- Mother Breast/Ovarian CA- Mother, "middle aged" Negative: Cardiac Disease, Diabetes - Social History Occupation: Employed Full-time Lives: With Family Alcohol Use: None Substance Use Type: None Smoking Status (MU): Heavy Every Day Tobacco Smoker Type: Cigarettes Amount Used/How Often: 1ppd smoked 20 years Length of Time of Smoking/Using Tobacco: age 16 Have You Smoked in the Last Year: Yes Household Exposure Type: Cigarettes - Immunization History Most Recent Influenza Vaccination: never Most Recent Tetanus Shot: 2016 Vaccination Up to Date: Yes Review of Systems All Other Systems Reviewed And Are Negative: Yes Constitutional: Positive: Negative Skin: Positive: Negative Eyes: Positive: Negative ENT: Positive: Negative Respiratory: Positive: Negative Cardiovascular: Positive: Negative Gastrointestinal: Positive: Negative Genitourinary: Positive: Negative Motor: Positive: Decreased ROM - left shoulder, neck pain Neurovascular: Positive: Negative Musculoskeletal: Positive: Arthralgia - neck pain, left shoulder pain, Decreased ROM - left shoulder, Myalgia Neurological: Positive: Negative Psychological: Positive: Negative Is Patient Immunocompromised?: No Physical Exam Triage Information Reviewed: Yes Appearance: Pain Distress Vital Signs: Initial Vital Signs Temp 97.4 F 05/22/18 12:59 Pulse 76 05/22/18 12:59 Resp 18 05/22/18 12:59 BP 103/78 05/22/18 12:59 Pulse Ox 100 05/22/18 12:59 Vital Signs Reviewed: Yes Eye Exam: Normal Eyes: Positive: Other: - PERRLA ENT Exam: Normal Dental Exam: Normal Neck: Positive: Other: - neck tenderness ~ C3-5 Respiratory Exam: Normal Cardiovascular Exam: Normal Musculoskeletal Exam: Other Musculoskeletal: Positive: ROM Limited @ - neck , left shoulder Neurological Exam: Normal Psychological Exam: Normal Skin Exam: Normal Diagnostics - Radiology No standard instances Radiology Interpretation Completed By: Radiologist - IMPRESSION: STATUS POST ANTERIOR CERVICAL FUSION. NO ACUTE OSSEOUS INJURY TO THE CERVICAL SPINE. IMPRESSION: NO ACUTE INTRACRANIAL PATHOLOGY. Head Injury Course/Dx - Course Course Of Treatment: During clinic visit pt removed her [place] collar against medical advice. - Differential Dx/Diagnosis Differential Diagnosis/HQI/PQRI: Cerebral Contusion, Cervical Sprain, Concussion Without LOC, Intracranial Bleed Provider Diagnosis: Head injury, Neck pain, Left shoulder pain Discharge - Sign-Out/Discharge Documenting (check all that apply): Patient Departure All imaging exams completed and their final reports reviewed: Yes - Discharge Plan Condition: Stable Disposition: HOME Prescriptions: Cyclobenzaprine TAB* [Flexeril 10 MG TAB*] 10 mg PO Q8H PRN #15 tab PRN Reason: Pain Ibuprofen TAB* [Motrin TAB* 800 MG] 800 mg PO Q8H PRN #15 tab PRN Reason: Pain Patient Education Materials: Head Injury (ED), Shoulder Pain (ED) Forms: *Work Release Referrals: Le,Daxa [Primary Care Provider] - If Needed Additional Instructions: Please follow up with your PCP or if symptoms worsen, please go to the closest emergency room as soon as possible. Please follow up with your orthopedic provider as needed. - Billing Disposition and Condition Condition: STABLE Disposition: Home
[2018-05-22] MEDS ORDERED: Acetaminophen TAB* 325 MG PO ONE (14:01)
== END 2018-05-22 14:28 | disposition home or self-care (01) ==
LOC: UCCORT 12:42
DX: S09.90XA Unspecified injury of head, initial encounter (principal); M54.2 Cervicalgia; M54.9 Dorsalgia, unspecified; M79.10 Myalgia, unspecified site; M25.512 Pain in left shoulder; M25.511 Pain in right shoulder; R53.1 Weakness; F17.210 Nicotine dependence, cigarettes, uncomplicated; Z97.5 Presence of (intrauterine) contraceptive device; Z88.8 Allergy status to other drugs, medicaments and biological substances; Z88.0 Allergy status to penicillin; Z91.030 Bee allergy status; W00.0XXA Fall on same level due to ice and snow, initial encounter; Y92.9 Unspecified place or not applicable
CPT/HCPCS: 70450; 72125; 99213; A9270-GY; G0463

== ENCOUNTER 2018-09-04 13:37 | Day surgery (SDC) | payer BC, OTHER ==
--- NOTE | 2018-08-26 09:25 | HP ---
PREOPERATIVE HISTORY AND PHYSICAL: DATE OF ADMISSION/SURGERY: 09/04/18 DATE OF OFFICE VISIT: 08/22/18 ATTENDING SURGEON: Dr. Gisela Mendoza* (dictated by CHELSEA Onofre). PROCEDURE: Left shoulder arthroscopic rotator cuff repair, decompression, debridement, arthroscopic lysis of adhesions, and excision of distal clavicle. CHIEF COMPLAINT: Left shoulder pain. HISTORY OF PRESENT ILLNESS: Ana is a 37-year-old female, who presents to the clinic for left shoulder pain due to a work-related injury that caused small full- thickness rotator cuff tear. The patient is also having AC joint pain as she has stiffness from prior surgeries. She has failed conservative measures, therefore agreed to undergo left shoulder arthroscopic rotator cuff repair, decompression, debridement, arthroscopic lysis of adhesions, and excision of distal clavicle with Dr. Mendoza on 09/04/18. PAST MEDICAL HISTORY: Asthma, depression, anxiety, chronic back pain, and skin cancer. PAST SURGICAL HISTORY: Left shoulder surgery x3, C5 through C6 fusion, laparoscopy x6, knee surgery, and rhinoplasty x3. The patient denies prior complications with the anesthesia. CURRENT MEDICATIONS: 1. Topiramate 50 mg. 2. Morphine sulfate 15 mg. 3. Ventolin 108-90 mcg/ACT as needed. 4. Cyclobenzaprine 10 mg. 5. Duloxetine 40 mg 1 by mouth every day. ALLERGIES: PENICILLIN and DEPO-MEDROL. FAMILY HISTORY: Positive for hypertension, cancer, and neuropathy, and mom with a history of DVT after a femur fracture. SOCIAL HISTORY: She lives with her spouse. 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 She smokes half pack per day. She denies alcohol use. She is right- hand dominant. REVIEW OF SYSTEMS: A 14-point review of systems was reviewed with the patient. Positive for current complaint, otherwise negative. Denies fevers, chills, chest pain, shortness of breath, history of DVT, PE, or history of bleeding disorder. PHYSICAL EXAMINATION GENERAL: A 37-year-old, well-developed, well-nourished female, in no acute distress. VITAL SIGNS: Height 63, weight 196, pulse 72, blood pressure 130/80, temperature 98.1, BMI 34.7. HEENT: Normocephalic, atraumatic. PERRLA. NECK: Supple. Throat clear. PULMONARY: Lungs clear to auscultation bilaterally. No wheezing, rhonchi, or rales. CARDIAC: Regular rate and rhythm. S1, S2. No murmurs, gallops, or rubs. No edema. ABDOMEN: Positive bowel sounds, soft, nontender. NEURO: Alert and oriented x3. Cranial nerves grossly intact. MUSCULOSKELETAL: Left upper extremity: Skin is intact. No warmth or erythema. Forward flexion to 95, passively to 95, abduction 75, external rotation to 60. Full range of motion of the elbow, wrist, and hand. 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 +4/5 strength to rotator cuff testing obtained. +2 radial pulse. Sensation is intact to light touch distally. DIAGNOSTIC STUDIES: X-ray arthrogram of the left shoulder revealed full- thickness rotator cuff tear with extravasation of fluid. IMPRESSION: Left shoulder rotator cuff tear, adhesions, and acromioclavicular joint arthritis. PLAN: The patient is scheduled to undergo left shoulder arthroscopic rotator cuff repair, decompression, debridement, arthroscopic lysis of adhesions, and excision of distal clavicle with Dr. Mendoza on 09/04/18. She is tender to palpation over her AC joint today in clinic; therefore, this is a Workers' Comp request to add an excision of distal clavicle on to the procedure. She is on chronic pain medications; therefore, oxycodone 5 mg, MDD of 6, will be used in addition to her chronic pain meds for postoperative pain. This worked well for her prior surgeries. She will follow up in 10 to 14 days postop for followup and suture removal. CHELSEA ONOFRE [id number]/[facility] #: [id number] PORSHA
[~2018-09-04 13:37] MED LIST changes: -Buffered Lidocaine 0.9% SYRIN* 5 ML/SYR SYRINGE INTRADERM ONE; +Buffered Lidocaine 1% SYRIN* 1 ML/SYRINGE INTRADERM ONE; -Clindamycin 900 MG/D5W BAG(*) 900 MG/50 ML BAG IVPB ONE; -Dexamethasone IV* 4 MG/ML 1 ML (4 MG) IV SLOW PU ONE; -Dexamethasone IV* 4 MG/ML 1 ML (4 MG) ONE; -DiMENhydriNATE IV* 50 MG/ML VIAL IV PUSH PRN; -DiMENhydriNATE IV* 50 MG/ML VIAL ONE; -Famotidine IV* 10 MG/ML 2 ML (20 mg) IV ONE; -Famotidine IV* 10 MG/ML 2 ML (20 mg) ONE; -HYDROcodone/ACETAMIN 5-325 MG* 1 TAB PO PRN; -Ketorolac INJ* 30 MG/ML 1 ML VIAL IV PRN; -Ketorolac INJ* 30 MG/ML 1 ML VIAL ONE; -Lidocaine 2% PF * 5 ML VIAL ONE; -Midazolam* 1 MG/ML 5 ML VIAL (5 MG) ONE; -Naloxone* 0.4 MG/ML 1 ML VIAL IV PRN; -Ondansetron INJ* 2 MG/ML VIAL ONE; -Propofol* 10 MG/ML 20 ML BTL ONE; -Ropivacaine* 2 MG/ML 20 ML VIAL (0.2%) ONE; -Sugammadex * 200 MG/2 ML VIAL IV PUSH ONE; -fentaNYL* 50 MCG/ML 2 ML VIAL (100 MCG VIAL) IV PRN; -fentaNYL* 50 MCG/ML 2 ML VIAL (100 MCG VIAL) ONE; -oxyCODONE TAB* 5 MG TAB PO PRN
[2018-09-04] MEDS ORDERED: Propofol* 10 MG/ML 20 ML BTL ONE (13:40)
[2018-09-04] MEDS ORDERED: Midazolam* 1 MG/ML 2 ML VIAL (2 MG) ONE ×2 (13:41→15:32)
[2018-09-04] MEDS ORDERED: fentaNYL* 50 MCG/ML 2 ML VIAL (100 MCG VIAL) ONE ×2 (13:41→15:32)
[2018-09-04] MEDS ORDERED: Lidocaine 2% PF * 5 ML VIAL ONE (13:41)
[2018-09-04] MEDS ORDERED: Dexamethasone IV* 4 MG/ML 1 ML (4 MG) ONE (13:45)
[2018-09-04] MEDS ORDERED: ceFAZolin 2 GM PREMIX in ORs 2 GM/50 ML BAG IVPB ONE (14:12)
[2018-09-04] MEDS ORDERED: Buffered Lidocaine 1% SYRIN* 1 ML/SYRINGE INTRADERM ONE (14:13)
[2018-09-04] MEDS ORDERED: Levalbuterol 1.25MG/0.5ML NEB INH ONE (14:38)
[2018-09-04] MEDS ORDERED: Levalbuterol 1.25MG/0.5ML NEB ONE (14:40)
[2018-09-04] MEDS ORDERED: Ondansetron INJ* 2 MG/ML VIAL ONE (16:54)
[2018-09-04] MEDS ORDERED: Naloxone* 0.4 MG/ML 1 ML VIAL IV PRN (17:22)
[2018-09-04] MEDS ORDERED: HYDROmorphone INJ1* 1 MG/ML SYRINGE IV PRN (17:22)
[2018-09-04 17:38] VITALS: BP 117/72
--- NOTE | 2018-09-05 14:58 | OP ---
CC: PCP* OPERATIVE REPORT: DATE OF OPERATION: 09/04/18 - SDS DATE OF : 84 SURGEON: Gisela Mendoza MD ASSISTANTS: 1. CHELSEA Wetzel 2. Regi Sheets. An cement tester assistant was needed for the entirety of the case to help with positioning, retraction, and utilized throughout all portions of the case. ANESTHESIOLOGIST: Dr. Han. ANESTHESIA: General interscalene block. PRE-OP DIAGNOSES: Left shoulder severe ankylosis and impingement, frozen shoulder, possible failed rotator cuff repair. POST-OP DIAGNOSIS: Left shoulder ankylosis and frozen shoulder with failed Regeneten patch and acromioclavicular joint arthritis. OPERATIVE PROCEDURE: Left shoulder arthroscopy with: 1. Extensive glenohumeral debridement. 2. Lysis of adhesions. 3. Revision subacromial decompression. 4. Distal clavicle excision. 5. Rotator cuff repair with Regeneten patch. COMPLICATIONS: None. ESTIMATED BLOOD LOSS: Minimal. IMPLANTS: One Regeneten patch size medium. INDICATIONS: Ana Major is a 37-year-old female who underwent surgery in March for a previously repaired rotator cuff. She did okay for a while and then fell at work, then worked up as a workers' comp case. She has failed conservative management including physical therapy, antiinflammatories, ice, heat, and she has elected to proceed with surgical treatment. Risks and benefits were discussed at length included, but are not limited to bleeding; infection; damage to nerves, vessels, surrounding structures; wound nonhealing; persistent pain; need for further surgery; scarring; stiffness; incomplete relief of symptoms, risks of anesthesia. DESCRIPTION OF PROCEDURE: The patient was greeted in the preoperative area by the attending surgeon. Correct extremity was marked and consent was confirmed. The patient underwent interscalene nerve block by the anesthesiologist, after which the patient was brought back to the operating suite, where she was placed in supine position on the operating table. She then underwent general anesthesia and endotracheal intubation. After she was placed in the right lateral decubitus position with all bony prominences padded, she was secured with a pegboard. The left shoulder was then prepped and draped in the usual sterile beginning with chlorhexidine soap, scrub, and alcohol wipe and a final prep of ChloraPrep. After appropriate surgical pause indicating side, site, procedure, and administration of antibiotics, the standard posterolateral portal was made sharply with 11 blade. The scope was introduced into the joint. Joint was examined. There was significant amount of adhesions and stiffness. The anterior portal was made in an outside-in fashion. The shaver was used to debride the synovitis that was present as well as along the anterior, posterior , superior labrum. Inferior recess was intact. Glenohumeral joint had grade 0 to 1 changes. There is evidence of the previous repair of the rotator cuff that was done prior to my previous surgery. This was tagged with 0 PDS suture to see if there is actually a full- thickness tear. There was no evidence of any full-thickness tearing of this portion. Subscap was intact. Biceps had already been tenotomized. Once the synovitis was removed, attention was directed to the subacromial space. The scope was positioned in the subacromial space. Lateral portal was positioned. There was significant scar tissue that was present. There was evidence of the previous tendon octavio and the patch and had not been fully resorbed, that was not in the previously placed area indicating it had become loose. There was significant scar tissue. The shaver was unable to get some of the scar tissue. Therefore, electrocautery device was used to do significant decompression. The undersurface of the acromion was skeletonized again. Adhesions were anterior, posterior, and laterally. Once these were released and it was mobilized and lysis of adhesion was done, attention was directed to the AC joint, which was identified. The michael was brought through the anterior portal and the distal 8 mm were then removed using a 4.0 oval michael. Once this was complete, final images were obtained. Attention was directed to the subacromial space. The previously placed PDS suture was identified and there was no evidence of tear. This was probed carefully. The decision was made that there was no evidence of full-thickness tear. No fluid extravasated and therefore decision was made to try to treat this with second Regeneten patch. Once the patch was appropriately placed, it was secured medially with tendon octavio, laterally with the PEEK bone octavio. Final images were obtained. The graft was found to be well secured and the wounds were then copiously irrigated with sterile saline. Portals were closed with 3-0 nylon. Sterile dressings were applied as well as Cryo/Cuff. She was awoken from anesthesia and transferred to the PACU in stable condition. POSTOPERATIVE PLAN: She will be nonweightbearing. She will start physical therapy this week. She will be discharged on pain medication and antibiotics due to revision surgery. DVT prophylaxis was considered, but deferred due to no previous personal or family history. I will see the patient back in 10 to 14 days. [id number]/[facility] #: [id number] MTDBrisa
== END 2018-09-04 18:00 | disposition home or self-care (01) ==
LOC: OR 13:37
PROVIDERS: ATTEND Orthopaedic Surgery
DX: S46.012A Strain of muscle(s) and tendon(s) of the rotator cuff of left shoulder, initial encounter (principal); Z72.0 Tobacco use; J45.909 Unspecified asthma, uncomplicated; G89.18 Other acute postprocedural pain; F41.8 Other specified anxiety disorders; Z85.828 Personal history of other malignant neoplasm of skin; X58.XXXA Exposure to other specified factors, initial encounter; Y93.9 Activity, unspecified; Y92.9 Unspecified place or not applicable; Y99.0 Civilian activity done for income or pay
CPT/HCPCS: 81025; A9270-GY; C1713; J0690; J1100; J2250; J2405; J2704; J2795; J3010

== ENCOUNTER 2018-11-27 15:29 | Emergency (ER) | payer BC, OTHER ==
[2018-11-27 15:57] VITALS: BP 126/62
--- NOTE | 2018-11-27 17:10 | UC ---
General HPI - HPI Summary HPI Summary: Pt presents with c/o gradual onset of lower extremity swelling that began two weeks ago primarily in left leg. pt states that she has had left hip pain that began prior to lower extremity swelling. Pt has order for left hip xray from primary provider. Pt denies injury. Pt denies hx of chf, cardiac disorder or kidney dysfunction. Pt denies sob or chest pain. Pt states that she went on vacation via a car to [facility] and now has c/o bilateral lower extremity edema that is spreading up legs to knees. - History of Current Complaint Chief Complaint: UCLowerExtremity Stated Complaint: PAIN IN HIPS/SWELLING IN LEGS Time Seen by Provider: 11/27/18 15:56 Hx Obtained From: Patient Hx Last Menstrual Period: IUD in place Onset/Duration: Gradual Onset, Lasting Weeks, Still Present, Worse Since - osnet Timing: Constant Onset Severity: Mild Current Severity: Moderate Pain Intensity: 7 - Allergy/Home Medications Allergies/Adverse Reactions: Allergies Allergy/AdvReac Type Severity Reaction Status Date / Time methylprednisolone Allergy Severe Hives Verified 11/27/18 15:57 [From Depo-Medrol] Penicillins Allergy Severe Hives Verified 11/27/18 15:57 bee sting Allergy Severe Anaphylatic Uncoded 11/27/18 15:57 Shock Home Medications: Home Medications Water Pill 2 tab 11/27/18 [History] PMH/Surg Hx/FS Hx/Imm Hx Previously Healthy: Yes - Surgical History Surgical History: Yes Surgery Procedure, Year, and Place: c5 c6 fusion with screws & PLATE. left shoulder-2013/2016/2017 with anchors,. partial labia-RECONSTRUCTION. right knee,. abd laparoscopy: bladder stretch, endometriosis and Mirena tx. rhinoplasty x3, - Family History Known Family History: Positive: Hypertension - Mother, Other - Hypothyroidism- Mother Breast/Ovarian CA- Mother, "middle aged" Negative: Cardiac Disease, Diabetes - Social History Occupation: Employed Full-time Lives: With Family Alcohol Use: None Substance Use Type: None Smoking Status (MU): Heavy Every Day Tobacco Smoker Type: Cigarettes Amount Used/How Often: 1ppd smoked 20 years Length of Time of Smoking/Using Tobacco: age 16 Have You Smoked in the Last Year: Yes Household Exposure Type: Cigarettes - Immunization History Most Recent Influenza Vaccination: never Most Recent Tetanus Shot: 2016 Vaccination Up to Date: Yes Review of Systems All Other Systems Reviewed And Are Negative: Yes Constitutional: Positive: Negative Skin: Positive: Negative Eyes: Positive: Negative ENT: Positive: Negative Respiratory: Positive: Negative Cardiovascular: Positive: Negative Gastrointestinal: Positive: Negative Genitourinary: Positive: Negative Motor: Positive: Negative Neurovascular: Positive: Negative Musculoskeletal: Positive: Edema - bilateral non pitting Neurological: Positive: Negative Psychological: Positive: Negative Is Patient Immunocompromised?: No Physical Exam Triage Information Reviewed: Yes Appearance: Well-Appearing Vital Signs: Initial Vital Signs Temp 99.0 F 11/27/18 15:51 Pulse 78 11/27/18 15:51 Resp 16 11/27/18 15:51 BP 126/62 11/27/18 15:51 Pulse Ox 99 11/27/18 15:51 Vital Signs Reviewed: Yes Eye Exam: Normal ENT Exam: Normal Dental Exam: Normal Neck exam: Normal Respiratory Exam: Normal Respiratory: Positive: Lungs clear, Normal breath sounds, No respiratory distress Cardiovascular Exam: Normal Cardiovascular: Positive: RRR, No Murmur Abdominal Exam: Normal Abdomen Description: Positive: Nontender Musculoskeletal: Positive: Edema @ - bilateral non pitting Neurological Exam: Normal Psychological Exam: Normal Skin Exam: Normal Diagnostics - Radiology No standard instances Radiology Interpretation Completed By: Radiologist - IMPRESSION: MILD OSTEOARTHRITIS WITH A CAM DEFORMITY OF THE LEFT FEMORAL NECK SUGGESTIVE OF ACETABULAR IMPINGEMENT IN THE CORRECT CLINICAL SETTING Course/Dx - Differential Dx - Multi-Symptom Differential Diagnoses: Other - chf - Diagnoses Provider Diagnosis: Bilateral lower extremity edema, Left hip pain Discharge - Sign-Out/Discharge Documenting (check all that apply): Patient Departure All imaging exams completed and their final reports reviewed: Yes - Discharge Plan Condition: Stable Disposition: HOME Patient Education Materials: Leg Edema (ED), Low-Sodium Diet (ED), Hip Pain (ED ) Referrals: Daxa Prince [Primary Care Provider] - As Soon As Possible - Billing Disposition and Condition Condition: STABLE Disposition: Home
[2018-11-28 11:44] LABS: BUN/Creatinine Ratio 14.6 (8-20); Calcium 9.3 mg/dL (8.6-10.3); EGFR African American 86.8 (>60); EGFR Non-African American 71.8 (>60); Potassium 4.2 mmol/L (3.5-5.0)
== END 2018-11-27 17:30 | disposition home or self-care (01) ==
LOC: UCCORT 15:29
DX: R60.0 Localized edema (principal); M25.552 Pain in left hip; M16.12 Unilateral primary osteoarthritis, left hip; Z97.5 Presence of (intrauterine) contraceptive device; Z88.0 Allergy status to penicillin; Z88.8 Allergy status to other drugs, medicaments and biological substances; Z91.030 Bee allergy status; F17.210 Nicotine dependence, cigarettes, uncomplicated
CPT/HCPCS: 36415; 80048; 99211; G0463

== ENCOUNTER 2019-03-04 13:55 | Emergency (ER) | payer BC ==
--- OUTSIDE RECORDS SUMMARY | 2019-03-04 14:08 | XMS REPORT | Continuity of Care Document ---
:1980 External Reference #:[id number] Author Name Sydney Rahman M.D. Address [address] [place] [address] [address] [place] [address] Problems Description No Information Available Social History Type Date Description Comments Sex Unknown Tobacco Use Start: Unknown Light tobacco smoker (10 or fewer cigarettes/day) Allergies, Adverse Reactions, Alerts Active Allergies Reaction Severity Comments Date Penicillin Contact dermatitis 09/26/2011 Depo-Medrol hives 11/09/2014 Inactive Allergies NKDA 07/12/2010 Medications Active Medications SIG Qnty Indications Ordering Provider Date Melissa Rahman M.D. 12/20/2009 20mcg/24HR IUD Albuterol Sulfate Jazmine Sharif M.D. (2.5mg/3ML) 0.083% Nebulizer Cyclobenzaprine HCL Jazmine Sharif M.D. 5mg Tablets Topiramate Unknown 25mg Tablets Morphine Sulfate ER Unknown 15mg Tablets ER Ventolin HFA Unknown 108(90Base) mcg/Act Aerosol Sumatriptan Succinate Unknown 50mg Tablets Fluoxetine HCL Unknown 40mg Capsules Levothyroxine Sodium Unknown 150mcg Tablets Medications Administered in Office Medication SIG Qnty Indications Ordering Provider Date Mirena IUD [facility] [id number] Sydney Rahman M.D. 03/12/2018 Injection Lupron Injection CHARLENE Rahman M.D. 04/15/2009 [id number] Injection Immunizations Description No Information Available Vital Signs Date Vital Result Comment 01/22/2019 2:24pm BP Systolic 122 mmHg BP Diastolic 82 mmHg Height 63 inches 5'3" Weight 200.00 lb BMI (Body Mass Index) 35.4 kg/m2 03/12/2018 3:04pm BP Systolic 118 mmHg BP Diastolic 80 mmHg Height 63 inches 5'3" Weight 195.00 lb BMI (Body Mass Index) 34.5 kg/m2 Results Test Date Facility Test Result H/L Range Note Laboratory test 01/22/2019 [facility] Thinprep W/H <pending> finding HPV +CT/NG Laboratory test 01/22/2019 [facility] Affirm Culture <pending> finding [id number] [id number] [phone] Procedures Description No Information Available Medical Devices Description No Information Available Encounters Description No Information Available Assessments Date Code Description Provider 01/22/2019 Z80.41 Family history of malignant neoplasm of Sydney Rahman M.D. ovary Plan of Treatment Future Appointment(s):02/04/2020 2:30 pm - Sydney Rahman M.D. at [facility]/22/2019 - Sydney Rahman M.D.Z80.41 Family history of malignant neoplasm of ovaryComments:Patient meets 2015 NCCN criteria for heritable cancer syndromes. Specifically patient has [include alist of criteria to choose.] We are basing this assessment on the family history patient is reporting to us. Affected relative(s) has not been tested in this patient's family because: they are deceasedor they refused testing are unable to be reached have been tested and results are attached. We discussed and offered generic testing and patient accepted. The hereditary cancer panel will screen for 25genes, all of which impact the risk for one or more than eight different answers; breast, colon, prostate, skin, ovary, endometrial, stomach, and pancreas. As outlined by ACOG the following discussion points were reviewed with the patient during the course of todays appointment and the patient stated an understanding of the followin. Possible outcomes of the testing - specifically addressing the issue of positive, negative, and variance of unknown significance. In the case of an unknown significant variance, cancer risks are not yet fully defined.2. In the absence of a known familial mutation, when an unaffected patient is tested, interpretation of the results may be limited. A negative or unknown result does not eliminate the patients familial risk for cancer. Management based on familial risk would be discussed during result consult.3. Patient will consider surveillance, risk-reducing medications and risk-reducing surgery if a clinically actionable mutation is detected; referral to outsidespecialist may be indicated in this case.4. Possible familial implications of test results. If positive, there are risks to relatives to carry some mutations as the patient. If negative, although she cannot pass on a mutation to her children if she does not carry one, other family members still may qualify for testing and may be at risk for an inherited cancer syndrome.5. Discussion regarding state and federal laws regarding genetic discrimination and the privacy of genetic information. These laws do not apply to other forms of insurance, which may include life or disability insurance. Functional Status Description No Information Available Mental Status Description No Information Available Referrals Description No Information Available
--- OUTSIDE RECORDS SUMMARY | 2019-03-04 14:08 | XMS REPORT | Continuity of Care Document ---
:1980 External Reference #:[id number] Author Name Gisela Mendoza MD (transmitted by agent of provider Shayne Grullon) Address [address] [place] [address] Care Team Providers Name Role Phone Daxa Prince F.N.P - Family Care Team Information [employer] [phone] Problems Active Problems Provider Date Disorder of shoulder Gisela Mendoza MD Onset: 03/01/2018 Injury of shoulder region Gisela Mendoza MD Onset: 06/20/2018 Full thickness rotator cuff tear Gisela Mendoza MD Onset: 08/01/2018 Strain of muscle(s) and tendon(s) of the rotator Gisela Mendoza MD Onset: cuff of left shoulder, subsequent encounter Localized, secondary osteoarthritis of the Gisela Mendoza MD Onset: 09/17/2018 shoulder region Social History Type Date Description Comments Sex Unknown ETOH Use Denies alcohol use Tobacco Use Start: Unknown Patient is a current smoker, smokes every day Smoking Status Reviewed: 02/18/19 Patient is a current smoker, smokes every day Exercise Type/Frequency Exercises sporadically Allergies, Adverse Reactions, Alerts Active Allergies Reaction Severity Comments Date Penicillin hives 01/08/2018 Depo-Medrol hives 01/08/2018 Medications Active Medications SIG Qnty Indications Ordering Date Provider Diclofenac Sodium apply 1 gram 3-4 200gm S46.012D Gisela Mendoza MD 2018 1% Gel times a day to painful area Topiramate Unknown 50mg Tablets Morphine Sulfate ER Unknown 15mg Tablets ER Ventolin HFA Unknown 108(90Base) mcg/Act Aerosol Cyclobenzaprine HCL Unknown 10mg Tablets Fluoxetine HCL 1 by mouth every Unknown 40mg Capsules day History Medications Cephalexin take 1 by mouth 12tabs Gisela Mendoza MD 09/04/2018 - 500mg four times a day x 09/11/2018 Tablets 3 days Oxycodone HCL 1 tabs by mouth 30tabs Gisela Mendoza MD 08/22/2018 - 5mg every 4-6 hours as 09/17/2018 Tablets needed post op pain in addition to chronic pain meds Medications Administered in Office Medication SIG Qnty Indications Ordering Provider Date Triamcinolone (Kenalog) Gisela Mendoza MD 02/18/2019 Injection No Injection Gisela Mendoza MD 03/01/2018 Injection Immunizations Description No Information Available Vital Signs Date Vital Result Comment 02/18/2019 8:15am Height 63 inches 5'3" Weight 195.00 lb Heart Rate 83 /min BP Systolic 128 mmHg BP Diastolic 78 mmHg Body Temperature 97.2 F Pain Level 5 BMI (Body Mass Index) 34.5 kg/m2 01/14/2019 8:03am Height 63 inches 5'3" Weight 195.00 lb Heart Rate 72 /min BP Systolic 130 mmHg BP Diastolic 68 mmHg Body Temperature 99.0 F Pain Level 8 BMI (Body Mass Index) 34.5 kg/m2 Results Description No Information Available Procedures Date Code Description Status 02/18/2019 18062 Inject/Drain Joint/Bursa Major W/O US Completed 09/04/2018 46355 Arthroscopy,Shoulder Decompression Of Subacromial Space Completed W/Acromio 09/04/2018 50227 Arthroscopy,Shoulder Decompression Of Subacromial Space Completed W/Acromio 09/04/2018 21665 Arthroscopy Shoulder W/Lysis & Resection Of Adhesions Completed 09/04/2018 77808 Arthroscopy Shoulder W/Lysis & Resection Of Adhesions Completed 09/04/2018 49148 Arthroscopy,Shoulder,Distal Claviculectomy Incl Dist Completed Articular SR 09/04/2018 39736 Arthroscopy,Shoulder,Distal Claviculectomy Incl Dist Completed Articular SR Medical Devices Description No Information Available Encounters Type Date Location Provider Dx Diagnosis Office Visit 01/14/2019 [facility] Gisela Mendoza MD S46.012D Strain of 8:00a at [place] musc/tend the rotator cuff of left shoulder, subs S49.92xD Unsp injury of left shoulder and upper arm, subs encntr 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, left shoulder Office Visit 12/12/2018 2:15p [facility] Gisela Mendoza, S46.012D Strain of at [facility] musc/tend the rotator cuff of left shoulder, subs S49.92xD Unsp injury of left shoulder and upper arm, subs encntr 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, left shoulder Assessments Date Code Description Provider 02/18/2019 S46.012D Strain of muscle(s) and tendon(s) of the Gisela Mendoza MD rotator cuff of lef 02/18/2019 S49.92xD Unspecified injury of left shoulder and Gisela Mnedoza MD upper arm, subsequen 01/14/2019 S46.012D Strain of muscle(s) and tendon(s) of the Gisela Mendoza MD rotator cuff of lef 01/14/2019 S49.92xD Unspecified injury of left shoulder and Gisela Mendoza MD upper arm, subsequen 01/14/2019 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, left shoulder Gisela Mendoza MD 12/12/2018 S46.012D Strain of muscle(s) and tendon(s) of the Gisela Mendoza MD rotator cuff of lef 12/12/2018 S49.92xD Unspecified injury of left shoulder and Gisela Mendoza MD upper arm, subsequen 12/12/2018 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, left shoulder Gisela Mendoza MD 10/11/2018 S46.012D Strain of muscle(s) and tendon(s) of the Gisela Mendoza MD rotator cuff of lef 10/11/2018 S49.92xD Unspecified injury of left shoulder and Gisela Mendoza MD upper arm, subsequen 10/11/2018 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, left shoulder Gisela Mendoza MD 09/17/2018 S46.012D Strain of muscle(s) and tendon(s) of the Gisela Mendoza MD rotator cuff of lef 09/17/2018 S49.92xD Unspecified injury of left shoulder and Gisela Mendoza MD upper arm, subsequen 09/17/2018 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, left shoulder Gisela Mendoza MD 09/04/2018 S46.012D Strain of muscle(s) and tendon(s) of the Gisela Mendoza MD rotator cuff of lef 09/04/2018 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, left shoulder Sarah Berry PA-C 09/04/2018 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, left shoulder Gisela Mendoza MD 09/04/2018 S49.92xD Unspecified injury of left shoulder and Gisela Mendoza MD upper arm, subsequen 09/04/2018 M24.812 Oth specific joint derangements of left Sarah Berry PA-C shoulder, NEC 09/04/2018 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, left shoulder Gisela Mendoza MD 09/04/2018 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, left shoulder Sarah Berry PA-C 09/04/2018 M24.812 Other specific joint derangements of left Gisela Mendoza MD shoulder, not elsewhere classified 08/22/2018 S46.012D Strain of muscle(s) and tendon(s) of the Gisela Mendoza MD rotator cuff of lef Plan of Treatment Future Appointment(s):04/01/2019 9:15 am - Gisela Mendoza MD at [facility] at [place]/18/2019 - Gisela Mendoza MDS46.012D Strain of muscle(s) and tendon(s) of the rotator cuff of lefFollow up:Follow up: 6-8 [id number] Unspecified injury of left shoulder and upper arm, Functional Status Description No Information Available Mental Status Description No Information Available Referrals Description No Information Available
[2019-03-04 14:15] VITALS: BP 116/59
[2019-03-04] MEDS ORDERED: Ketorolac *IM* INJ* 60 MG/2 ML VIAL IM ONE (14:18)
[2019-03-04] MEDS ORDERED: Ondansetron ODT TAB* 4 MG PO ONE (14:19)
[2019-03-04] MEDS ORDERED: SUMAtriptan SQ* 6 MG/0.5 ML VIAL SUBCUT ONE (14:36)
--- NOTE | 2019-03-04 14:36 | UC ---
Headache HPI - HPI Summary HPI Summary: severe headaches x 1 day pain is 10 out of 10 , nothing makes it better, worse with light + nausea and vomiting tried imitrax but vomited right after , same with ibuprofen no fever, no chills Hx of migraine - History Of Current Complaint Chief Complaint: UCHeadache Stated Complaint: MIGRAINE Time Seen by Provider: 03/04/19 14:12 Hx Obtained From: Patient Hx Last Menstrual Period: IUD in place ?: No Onset/Duration: Sudden Onset, Lasting Days - 1, Still Present Onset Of Symptoms: Still Present Currently Pain Is: Severe Pain Intensity: 9 Timing: Constant Character: Throbbing Location of Headache: Diffuse Aggravating Factor(s): Exertion, Bright Lights Allevating Factor(s): Nothing Associated Signs And Symptoms: Positive: Nausea, Vomiting. Negative: Dizziness , Seizure, Sinus Pressure, Fever, Neck Pain, Neck Stiffness, Decreased LOC - Allergies/Home Medications Allergies/Adverse Reactions: Allergies Allergy/AdvReac Type Severity Reaction Status Date / Time methylprednisolone Allergy Severe Hives Verified 03/04/19 14:11 [From Depo-Medrol] Penicillins Allergy Severe Hives Verified 03/04/19 14:11 bee sting Allergy Severe Anaphylatic Uncoded 03/04/19 14:11 Shock Home Medications: Home Medications FLUoxetine CAP* [PROzac CAP*] 40 mg PO DAILY 03/04/19 [History Confirmed ] Ibuprofen TAB* [Motrin TAB* 800 MG] 800 mg PO Q8H PRN 03/04/19 [History Confirmed 03/04/19] Levothyroxine TAB* [Synthroid TAB*] 25 mcg PO DAILY 03/04/19 [History Confirmed 03/04/19] PMH/Surg Hx/FS Hx/Imm Hx Neurological History: Migraine - Surgical History Surgical History: Yes Surgery Procedure, Year, and Place: c5 c6 fusion with screws & PLATE. left shoulder-2013/2016/2018 with anchors,. partial labia-RECONSTRUCTION. right knee,. abd laparoscopy: bladder stretch, endometriosis and Mirena tx. rhinoplasty x3, - Family History Known Family History: Positive: Hypertension - Mother, Other - Hypothyroidism- Mother Breast/Ovarian CA- Mother, "middle aged" Negative: Cardiac Disease, Diabetes - Social History Alcohol Use: None Substance Use Type: None Smoking Status (MU): Heavy Every Day Tobacco Smoker Type: Cigarettes Amount Used/How Often: 1ppd smoked 20 years Length of Time of Smoking/Using Tobacco: age 16 Have You Smoked in the Last Year: Yes Household Exposure Type: Cigarettes - Immunization History Most Recent Influenza Vaccination: never Most Recent Tetanus Shot: 2016 Vaccination Up to Date: Yes Review of Systems All Other Systems Reviewed And Are Negative: Yes Constitutional: Positive: Negative Skin: Positive: Negative Eyes: Positive: Negative ENT: Positive: Negative Respiratory: Positive: Negative Neurological: Positive: Headache Is Patient Immunocompromised?: No Physical Exam Triage Information Reviewed: Yes Appearance: Well-Nourished, Pain Distress Vital Signs: Initial Vital Signs Temp 98.2 F 03/04/19 14:08 Pulse 71 03/04/19 14:08 Resp 20 03/04/19 14:08 BP 116/59 03/04/19 14:08 Pulse Ox 97 03/04/19 14:08 Vital Signs Reviewed: Yes Eye Exam: Normal Eyes: Positive: Conjunctiva Clear ENT Exam: Normal ENT: Positive: Normal ENT inspection, Hearing grossly normal, Pharynx normal Neck exam: Normal Neck: Positive: Supple, Nontender Respiratory: Positive: Chest non-tender, Lungs clear, Normal breath sounds Cardiovascular: Positive: RRR, No Murmur, Pulses Normal Musculoskeletal: Positive: Strength Intact, ROM Intact, No Edema Neurological: Positive: Alert UC Physical Exam Vital Signs On Initial Exam: Initial Vitals Temp Pulse Resp BP Pulse Ox 98.2 F 71 20 116/59 97 03/04/19 14:08 03/04/19 14:08 03/04/19 14:08 03/04/19 14:08 03/04/19 14:08 - Neurological Exam Neurological: Normal, Sensory/Motor Intact, CN Intact II-III, Normal Gait, Speech Normal Headache Course/Dx - Differential Dx/Diagnosis Provider Diagnosis: Headache, migraine, intractable Discharge ED - Sign-Out/Discharge Documenting (check all that apply): Patient Departure All imaging exams completed and their final reports reviewed: No Studies - Discharge Plan Condition: Stable Disposition: HOME Patient Education Materials: Acute Headache (ED) Referrals: Daxa Prince [Primary Care Provider] - 3 Days - Billing Disposition and Condition Condition: STABLE Disposition: Home
== END 2019-03-04 15:09 | disposition home or self-care (01) ==
LOC: UCCORT 13:55
DX: G43.919 Migraine, unspecified, intractable, without status migrainosus (principal); R11.2 Nausea with vomiting, unspecified; Z88.0 Allergy status to penicillin; Z88.8 Allergy status to other drugs, medicaments and biological substances; Z91.030 Bee allergy status; F17.210 Nicotine dependence, cigarettes, uncomplicated
CPT/HCPCS: 96372; 99212; A9270-GY; G0463; J1885; J3030

== ENCOUNTER 2019-03-11 11:39 | Emergency (ER) | payer BC ==
--- NOTE | 2019-03-11 11:54 | UC ---
Lower Extremity/Ankle HPI - HPI Summary HPI Summary: Patient is a 38yo female presenting with for L ankle and foot pain. States before coming in, she was getting out of her van when her foot got caught , rolled beneath her, and she fell forward. Notes numbness of dorsal foot. Notes decreased ROM due to pain. Denies tingling. Denies swelling and bruising. She is currently in a wheelchair because she states she cannot bear any weight on the foot. - History of Current Complaint Stated Complaint: S/P FALL-LEFT ANKLE INJURY Hx Obtained From: Patient Hx Last Menstrual Period: IUD in place Onset/Duration: Sudden Onset - Allergies/Home Medications Allergies/Adverse Reactions: Allergies Allergy/AdvReac Type Severity Reaction Status Date / Time methylprednisolone Allergy Severe Hives Verified 03/11/19 11:52 [From Depo-Medrol] Penicillins Allergy Severe Hives Verified 03/11/19 11:52 bee sting Allergy Severe Anaphylatic Uncoded 03/11/19 11:52 Shock PMH/Surg Hx/FS Hx/Imm Hx Neurological History: Migraine - Surgical History Surgical History: Yes Surgery Procedure, Year, and Place: c5 c6 fusion with screws & PLATE. left shoulder-2013/2016/2017 with anchors,. partial labia-RECONSTRUCTION. right knee,. abd laparoscopy: bladder stretch, endometriosis and Mirena tx. rhinoplasty x3, - Family History Known Family History: Positive: Hypertension - Mother, Other - Hypothyroidism- Mother Breast/Ovarian CA- Mother, "middle aged" Negative: Cardiac Disease, Diabetes - Social History Lives: With Family Alcohol Use: None Substance Use Type: None Smoking Status (MU): Heavy Every Day Tobacco Smoker Type: Cigarettes Amount Used/How Often: 1ppd smoked 20 years Length of Time of Smoking/Using Tobacco: age 16 Have You Smoked in the Last Year: Yes Household Exposure Type: Cigarettes - Immunization History Most Recent Influenza Vaccination: never Most Recent Tetanus Shot: 2016 Vaccination Up to Date: Yes Review of Systems All Other Systems Reviewed And Are Negative: No Respiratory: Positive: Negative Cardiovascular: Positive: Negative Motor: Positive: Negative Neurovascular: Positive: Negative Musculoskeletal: Positive: Arthralgia - L ankle/foot, Decreased ROM - L ankle d/ t pain. Negative: Edema Neurological: Positive: Numbness - dorsal L foot. Negative: Paresthesia Physical Exam Triage Information Reviewed: Yes Appearance: Well-Appearing, Well-Nourished, Pain Distress Vital Signs: Vital Signs (72 hours) 03/11/19 11:54 Temperature 98.5 F Pulse Rate 85 Respiratory 17 Rate Blood Pressure 109/49 (mmHg) O2 Sat by Pulse 99 Oximetry Vital Signs Reviewed: Yes Eyes: Positive: Conjunctiva Clear ENT: Positive: Hearing grossly normal Neck: Positive: Supple Respiratory: Positive: No respiratory distress Cardiovascular: Positive: Pulses Normal - strong pedal and ankle pulses, Brisk Capillary Refill Musculoskeletal: Positive: Strength Intact, No Edema, ROM Limited @ - L plantar flexion, Other: - tenderness to palpation of L anterolateral ankle and L medial forefoot Neurological: Positive: Alert Psychological: Positive: Age Appropriate Behavior Skin Exam: Normal - no ecchymosis Diagnostics - Radiology L ankle Radiology Interpretation Completed By: Radiologist Summary of Radiographic Findings: REPORT AND IMPRESSION: #. Negative for fracture, osteochondral lesion, or articular malalignment at the ankle or foot. #. Small Achilles tendon insertion and plantar fascia origin bone spurs. #. Soft tissue swelling most prominent over the medial malleolus. L foot Radiology Interpretation Completed By: Radiologist Summary of Radiographic Findings: REPORT AND IMPRESSION: #. Negative for fracture, osteochondral lesion, or articular malalignment at the ankle or foot. #. Small Achilles tendon insertion and plantar fascia origin bone spurs. #. Soft tissue swelling most prominent over the medial malleolus. Lower Extremity Course/Dx - Course Course Of Treatment: Discussed negative xrays with patient likely ankle sprain. Instructed to continue with symptomatic treatment, including use of gabby wrap and splint. Instructed to follow up with pcp or ortho if pain persists. Patient voiced understanding and agreed with treatment plan. - Differential Dx/Diagnosis Provider Diagnosis: Left ankle sprain Discharge ED - Sign-Out/Discharge Documenting (check all that apply): Patient Departure All imaging exams completed and their final reports reviewed: Yes - Discharge Plan Condition: Stable Disposition: HOME Patient Education Materials: Ankle Sprain (ED) Forms: *Work Release Referrals: Daxa Prince [Primary Care Provider] - If Needed Jovanny Kee MD [Medical Doctor] - If Needed Additional Instructions: As discussed, the xrays of the ankle did not show any fractures. Rest, ice, elevate, and use the GABBY wrap and ankle splint to help relieve ankle pain. You may also use over the counter pain medications as directed for relief of pain. If pain does not begin to resolve within a week or two, follow up with your PCP or orthopedics as listed below. Go to the emergency room if pain worsens, the foot becomes cold and numb, or you are unable to bear weight. - Billing Disposition and Condition Condition: STABLE Disposition: Home
[2019-03-11 11:58] VITALS: BP 109/49
== END 2019-03-11 13:09 | disposition home or self-care (01) ==
LOC: UCCORT 11:39
DX: S93.402A Sprain of unspecified ligament of left ankle, initial encounter (principal); F17.210 Nicotine dependence, cigarettes, uncomplicated; Z88.8 Allergy status to other drugs, medicaments and biological substances; Z88.0 Allergy status to penicillin; Z91.030 Bee allergy status; X50.0XXA Overexertion from strenuous movement or load, initial encounter; Y92.9 Unspecified place or not applicable
CPT/HCPCS: 99213; G0463